=== PATIENT | female | born 1960 | race Caucasian/White ===

== ENCOUNTER 2024-04-01 10:31 | Outpatient (CLI) | payer MEDICAID, SELFPAY | END 2024-04-01 10:32 | disposition home or self-care (01) | LOC: AMB 04-02 03:39 | PROVIDERS: Visit Provider Family Medicine | DX: M79.604 Pain in right leg (principal) | CPT/HCPCS: A0425; A0429 ==

== ENCOUNTER 2024-04-01 11:11 | Emergency (ER) | payer MEDICAID, SELFPAY ==
[2024-04-01 11:18] VITALS: BP 144/58; PULSE 90; RESP 24; TEMP 36.1; O2SAT 97; BMI 58.4
--- NOTE | 2024-04-01 11:32 | CRLHL7_ITS ---
For Patients: As a result of the Century Cures Act, medical imaging exams and procedure reports are released immediately into your electronic medical record. You may view this report before your referring provider. If you have questions, please contact your health care provider. INDICATION: Knee pain TECHNIQUE: Four views of the right knee FINDINGS/IMPRESSION: Normal alignment. No acute fracture or acute osseous abnormalities are visualized. Moderate osteoarthritis with joint space narrowing osteophytic changes. Dictated by Candy Aguirre MD @ 04/01/2024 12:53:29 PM (Electronically Signed)
--- NOTE | 2024-04-01 11:33 | CRLHL7_ITS ---
For Patients: As a result of the Century Cures Act, medical imaging exams and procedure reports are released immediately into your electronic medical record. You may view this report before your referring provider. If you have questions, please contact your health care provider. INDICATION: Leg pain and swelling. TECHNIQUE: Ultrasound venous duplex lower right extremity. Compression venous exam was performed using nails-scale, color Doppler, and spectral Doppler analysis. COMPARISON: None. FINDINGS: Deep veins: Sonographic imaging demonstrates the right common femoral, deep femoral, superficial femoral, popliteal, posterior tibial and the contralateral right common femoral veins to be fully compressible with normal color Doppler blood flow. Superficial veins: Greater saphenous vein is fully compressible. No popliteal cyst. IMPRESSION: Normal right lower extremity venous ultrasound, no sign of deep venous thrombosis. Dictated by Jack Henriquez MD @ 04/01/2024 1:38:54 PM (Electronically Signed)
--- NOTE | 2024-04-01 12:52 | ED_ITS ---
HPI - General Adult General Chief complaint: Extremity Pain/Injury, Lower Stated complaint: Leg Pain Time Seen by Provider: 04/01/24 11:19 Source: patient Mode of arrival: EMS Limitations: no limitations History of Present Illness HPI narrative: Her 63-year-old female, history of chronic pain on a chronic narcotic therapy, presenting today with right lower extremity pain. Patient is a resident at [facility] and generally walks using a walker. She states that for the last 3 days she has had significant pain of the medial right lower extremity around the knee just below the knee and just above the knee in the thigh. Nothing makes it better or worse. The pain is constant. She states that she can not even walk because she is in so much pain. She denies any redness or swelling of the area. She denies any systemic symptoms. Related Data Home Medications ?Medication ?Instructions ?Recorded ?Confirmed aspirin 81 mg chewable tablet 81 mg PO DAILY 04/01/24 04/01/24 cholecalciferol (vitamin D3) 50 50 mcg PO DAILY 04/01/24 04/01/24 mcg (2,000 unit) capsule (Vitamin D3) cyanocobalamin (vitamin B-12) 1,000 mcg PO DAILY 04/01/24 04/01/24 1,000 mcg tablet (Vitamin B-12) duloxetine 60 mg capsule,delayed 60 mg PO DAILY 04/01/24 04/01/24 release fluticasone furoate 200 1 inh inhalation DAILY 04/01/24 04/01/24 mcg-vilanterol 25 mcg/dose inhalation powder furosemide 20 mg tablet 20 mg PO QAM 04/01/24 04/01/24 gabapentin 300 mg capsule 300 mg PO DAILY 04/01/24 04/01/24 hydrocodone 7.5 mg-acetaminophen 1 tab PO Q6H 04/01/24 04/01/24 325 mg tablet hydroxyzine HCl 25 mg tablet 25 mg PO TID PRN 04/01/24 04/01/24 insulin glargine 100 unit/mL (3 20 unit subcut QPM 04/01/24 04/01/24 mL) subcutaneous pen (Lantus Solostar U-100 Insulin) levothyroxine 150 mcg capsule 150 mcg PO DAILY 04/01/24 04/01/24 magnesium hydroxide 400 mg/5 mL 15 ml PO DAILY PRN 04/01/24 04/01/24 oral suspension (Milk of Magnesteban) megestrol 40 mg tablet 40 mg PO DAILY 04/01/24 04/01/24 metformin 1,000 mg tablet 1,000 mg PO BID 04/01/24 04/01/24 rosuvastatin 20 mg tablet 20 mg PO DAILY 04/01/24 04/01/24 zolpidem 10 mg tablet 10 mg PO QHS PRN 04/01/24 04/01/24 Allergies Allergy/AdvReac Type Severity Reaction Status Date / Time droperidol Allergy Unknown Verified 04/01/24 11:34 fluoxetine Allergy Unknown Verified 04/01/24 11:34 ibuprofen Allergy Unknown Verified 04/01/24 11:34 Review of Systems Status of ROS: Reports: 10 or more systems reviewed and unremarkable except as noted in History and below [facility] Social History Smoking Status: Current every day smoker What tobacco products do you use: cig arettes Smoking packs per day: 0.5 Smoking cigarettes per day: 10.0 How often do you have a drink containing alcohol: never AUDIT-C Alcohol total score: 0 Non-prescribed substance use: denies use Exam Narrative: Exam Narrative: Morbidly obese patient in no acute distress. Alert and oriented. Answers questions appropriately. Mood and affect are appropriate. Thoughts are goal or iented and rational. No tangential or magical thinking noted. Patient speaks in full sentences without needing to catch her breath. HEENT: Normocephalic atraumatic. Extraocular muscles are intact. Conjunctivae are moist without any icterus noted. Moist mucous membranes. Extremities: Morbidly obese. Right extremity has no erythema, bruising or other rashes. Patient has tenderness to palpation of the medial lower thigh the medial knee and the medial upper calf. There are no skin changes visualized in the area. She has pain when she has to flex her knee. Was not able to do a good knee exam secondary to body habitus. Const: Vital Signs, click to edit/add: Vital Signs - 24 hr 04/01/24 11:18 Temperature 97 F L Pulse Rate [Pulse Oximeter] 90 Respiratory Rate 24 Blood Pressure [Ri ght Forearm] 144/58 H Pulse Oximetry 97 Oxygen Delivery Me thod Room Air Course Course ED Course: We proceeded with x-raying the knee and ultrasound of the lower extremity: X ray shows osteoarthritis with medial joint space narrowing. She did receive 1 dose of IM Toradol while she was here. Vital Signs Vital signs: Initial Vital Signs Temperature 97 F L 04/01/24 11:18 Temperature Source Temporal Artery Scan 04/01/24 11:18 Pulse Rate 90 04/01/24 11:18 Pulse Rhythm Regular 04/01/24 11:18 Respiratory Rate 24 04/01/24 11:18 Blood Pressure 144/58 H 04/01/24 11:18 Blood Pressure Mean 86 04/01/24 11:18 Blood Pressure Position Supine 04/01/24 11:18 Pulse Oximetry 97 04/01/24 11:18 Oxygen Delivery Method Room Air 04/01/24 11:18 Vital Signs Temperature 97 F L 04/01/24 11:18 Pulse Rate 90 04/01/24 11:18 Respiratory Rate 24 04/01/24 11:18 Blood Pressure 144/58 H 04/01/24 11:18 Pulse Oximetry 97 04/01/24 11:18 Oxygen Delivery Method Room Air 04/01/24 11:18 Temperature 97 F L 04/01/24 11:18 Pulse Rate 90 04/01/24 11:18 Respiratory Rate 24 04/01/24 11:18 Blood Pressure 144/58 H 04/01/24 11:18 Pulse Oximetry 97 04/01/24 11:18 Oxygen Delivery Method Room Air 04/01/24 11:18 Medications Administered Medications: Discontinued Medications Generic Name Dose Route Start Last Admin Trade Name Freq PRN Reason Stop Dose Admin Ketorolac Tromethamine 60 mg 04/01/24 13:15 04/01/24 13:12 Ketorolac 60 Mg/2 Ml Inj IM 04/01/24 13:16 Not Given ONCE ONE Medical Decision Making MDM Narrative Medical decision making narrative: 63-year-old female with leg pain. It appears that her pain could be coming from her knee as knee movement increases her discomfort. It is difficult to be certain of the origin of the pain secondary to body habitus. At this time I recommend pain management with icing versus heat, continuing her Vicodin. Recommend she follow up with Orthopedics or primary care to see if a knee i njection would be beneficial. Imaging Data Knee x-ray: Attestation: I have reviewed the pertinent imaging results. Radiologist's impression: TECHNIQUE: Four views of the right knee FINDINGS/IMPRESSION: Normal alignment. No acute fracture or acute osseous abnormalities are visualized. Moderate osteoarthritis with joint space narrowing osteophytic changes. Venous US: Attestation: I have reviewed the pertinent imaging results. Radiologist's impression: Ultrasound venous duplex lower right extremity. Compression venous exam was performed using nails-scale, color Doppler, and spectral Doppler analysis. COMPARISON: None. FINDINGS: Deep veins: Sonographic imaging demonstrates the right common femoral, deep femoral, superficial femoral, popliteal, posterior tibial and the contralateral right common femoral veins to be fully compressible with normal color Doppler blood flow. Superficial veins: Greater saphenous vein is fully compressible. No popliteal cyst. IMPRESSION: Normal right lower extremity venous ultrasound, no sign of deep venous thrombosis. Discharge Plan Discharge Clinical Impression: Acute leg pain Patient Disposition: Home, Self-Care Condition: Stable Additional Instructions: It appears that your pain is likely caused by significant arthritis in your right knee. I will follow up with Orthopedics or with your primary care provider to discuss a knee injection. In the meantime continue your current pain medication. Can also ice or heat that is tender area, do not apply either ice or heat directly to the skin. Prescriptions: No Action hydrocodone-acetaminophen 7.5-325 mg tablet 1 tab PO Q6H insulin glargine [Lantus Solostar U-100 Insulin] 100 unit/mL (3 mL) insulin pen 20 unit subcut QPM levothyroxine 150 mcg capsule 150 mcg PO DAILY megestrol 40 mg tablet 40 mg PO DAILY metformin 1,000 mg tablet 1,000 mg PO BID rosuvastatin 20 mg tablet 20 mg PO DAILY zolpidem 10 mg tablet 10 mg PO QHS PRN cyanocobalamin (vitamin B-12) [Vitamin B-12] 1,000 mcg tablet 1,000 mcg PO DAILY cholecalciferol (vitamin D3) [Vitamin D3] 50 mcg (2,000 unit) capsule 50 mcg PO DAILY aspirin 81 mg tablet,chewable 81 mg PO DAILY duloxetine 60 mg capsule,delayed release(DR/EC) 60 mg PO DAILY fluticasone furoate-vilanterol 200-25 mcg/dose blister with device 1 inh inhalation DAILY furosemide 20 mg tablet 20 mg PO QAM gabapentin 300 mg capsule 300 mg PO DAILY hydroxyzine HCl 25 mg tablet 25 mg PO TID PRN magnesium hydroxide [Milk of Magnesia] 400 mg/5 mL suspension 15 ml PO DAILY PRN Follow Up/Referrals: Provider,Not a Local [Primary Care Provider] - Stand Alone Forms: [facility] Info Instructions
[2024-04-01 13:54] VITALS: PULSE 85
== END 2024-04-01 14:08 | disposition home or self-care (01) ==
PROVIDERS: Emergency Provider Family Medicine
DX: M25.561 Pain in right knee (principal)
CPT/HCPCS: 73562; 93971; 96372; 99283; 99284

== ENCOUNTER 2024-11-25 18:33 | Outpatient (CLI) | payer MEDICAID, SELFPAY | END 2024-11-25 18:34 | disposition home or self-care (01) | LOC: AMB 11-27 13:03 | PROVIDERS: Visit Provider Student in an Organized Health Care Education/Training Program | DX: S09.90XA Unspecified injury of head, initial encounter (principal); W07.XXXA Fall from chair, initial encounter; Y92.009 Unspecified place in unspecified non-institutional (private) residence as the place of occurrence of the external cause | CPT/HCPCS: A0998 ==

== ENCOUNTER 2024-12-14 09:22 | Emergency (ER) | payer MEDICAID, SELFPAY ==
--- OUTSIDE RECORDS SUMMARY | 2024-12-14 09:25 | XMS_ITS | Clinical Summary ---
Author Organization [employer] [facility] Address [address] [place] [id number] Care Team Providers Care Pit Crew Support Worker Name Role Phone Poly Wilhelm MD Primary Care Provider + Allergies Active Allergy Reactions Criticality Noted Date Comments Droperidol Rash,Wheezing High 02/27/2010 Fluoxetine Rash High 01/17/2010 Ibuprofen Stomach Upset,Nausea And Vomiting Medium 03/23/2017 Pollen Extracts Shortness Of Breath,Runny Nose Unknown 03/23/2017 Itchy watery eyes, exacerbates asthma [place] Pollen Itching,Dyspnea High 03/23/2017 Seasonal Allergies:Allergic Rhinitis, Asthma exacerbation, Itchy watery eyes Medications lancets (ACCU-CHEK FASTCLIX LANCET DRUM)Indications:Co ntrolled type 2 diabetes mellitus without complication, with long-term current use of insulin (HC) TEST BLOOD SUGAR ONCE DAILY DIRECTED 204 Each 3 03/22/20 19 Active levonorgestrel intrauterine device (MIRENA) 20 mcg/24 hours (5 yrs) 52 mg IUD Inject 1 Each intrauterine. 07/07/20 19 Active Diaper,Brief, Adult,DisposableInd ications:Stress incontinence (female) (male) For home use. Pull ups 96 Each 06/10/20 21 Active hospital bedIndications:CRLD (chronic restrictive lung disease),Chronic musculoskeletal pain,Morbid obesity with BMI of 50.0-59.9, adult (HC),Primary osteoarthritis of knee, unspecified laterality Bariatric Hospital bed with mattress and 1/2 rails. Bariatric electric bed. Length of need 99 months. Bed public health doctor:no 1 Each 08/03/20 22 Active NebulizerIndication s:COPD mixed type (HC),Moderate persistent asthma without complication (HC) Nebulizer, disposable neb kit x 4, reuseable neb kit x 1, mask x 1, filters x 1. Frequency of use: daily; Medication: albuterol Length of need: 99 months 1 Each 09/15/19 23 Active wheelchairIndicatio ns:Osteoarthritis of both knees, unspecified osteoarthritis type,Chronic musculoskeletal pain,Morbid obesity with BMI of 50.0-59.9, adult (HC) Electric scooter/Wheelcha ir: Bariatric (over 250 lbs) for home and outdoor use Length of need: 99 months 1 Each 03/29/20 23 Active fluticasone furoate-vilanteroL (Breo Ellipta) 200mcg/25mcg inhalerIndications: COPD mixed type (HC) Inhale 1 Puff by mouth once daily. 60 Each 3 10/12/19 24 Active cyanocobalamin (VITAMIN B12) 500 mcg tabletIndications:V itamin B12 deficiency Take 2 Tablets (1,000 mcg) by mouth once daily. 90 Tablet 3 07/05/20 24 Active albuterol-ipratropi um (DUONEB) (2.5-0.5 mg) in 3 mL NEBULIZATION solutionIndications :Mild persistent asthma without complication (HC) INHALE 1 AMPULE VIA NEBULIZER 4 TIMES DAILY *STORE UNUSED AMPULES IN FOIL POUCH* 180 mL 12 08/03/20 24 Active Januvia 100 mg tabletIndications:C ontrolled type 2 diabetes mellitus without complication, with long-term current use of insulin (HC) TAKE 1 TABLET BY MOUTH DAILY 28 Tablet 08/28/19 25 Active rosuvastatin (CRESTOR) 20 mg tabletIndications:U ncontrolled type 2 diabetes mellitus with hyperglycemia (HC),Dyslipidemia TAKE 1 TABLET BY MOUTH EVERY NIGHT AT BEDTIME 28 Tablet 08/28/19 25 Active omeprazole (PRILOSEC) 20 mg Delayed-Release capsuleIndications: Gastritis and gastroduodenitis TAKE 1 CAPSULE BY MOUTH TWICE DAILY BEFORE BREAKFAST AND SUPPER 56 Capsule 08/28/19 25 Active pen needle,diabetic dual safty (BD AutoShield Duo Pen Needle) 30 gauge x 3/16 ndleIndications:Con trolled type 2 diabetes mellitus with complication, with long-term current use of insulin (HC) As directed. To administer insulin at home once daily 100 Each 08/27/19 25 Active aspirin chewable 81 mg chewable tabletIndications:U ncontrolled type 2 diabetes mellitus with hyperglycemia (HC) Chew 1 Tablet (81 mg) by mouth once daily with a meal. 28 Tablet 09/26/19 25 Active cholecalciferol, Vitamin D3, 2,000 unit tabletIndications:V itamin D deficiency Take 1 Tablet (2,000 units) by mouth once daily. 90 Tablet 2 09/26/19 25 Active DULoxetine (CYMBALTA) 60 mg Delayed-release capsuleIndications: Depressive disorder,Anxiety state Take 1 Capsule (60 mg) by mouth once daily. 90 Capsule 09/26/19 25 Active furosemide (LASIX) 20 mg tabletIndications:H ypertension, unspecified type Take 1 Tablet (20 mg) by mouth once daily in the morning. 90 Tablet 1 09/26/19 25 Active gabapentin (NEURONTIN) 300 mg capsuleIndications: Chronic low back pain, unspecified back pain laterality, unspecified whether sciatica present,Chronic musculoskeletal pain Take 1 Capsule (300 mg) by mouth at bedtime. 90 Capsule 09/26/19 25 Active levothyroxine (SYNTHROID) 150 mcg tabletIndications:H ypothyroidism, unspecified type Take 1 Tablet (150 mcg) by mouth before breakfast. 90 Tablet 09/26/19 25 Active metFORMIN (GLUCOPHAGE) 1,000 mg tabletIndications:U ncontrolled type 2 diabetes mellitus with hyperglycemia (HC) Take 1 Tablet (1,000 mg) by mouth two times daily with meals. 180 Tablet 09/26/19 25 Active montelukast (SINGULAIR) 10 mg tabletIndications:S evere persistent asthma without complication (HC) Take 1 Tablet (10 mg) by mouth at bedtime. 90 Tablet 09/26/19 25 Active potassium chloride (KLOR-CON M10) 10 mEq extended-release tablet (part/cryst)Indicat ions:Hypokalemia Take 1 Tablet (10 mEq) by mouth two times daily with meals. 180 Tablet 09/26/19 25 Active QUEtiapine (SEROQUEL) 400 mg tabletIndications:A uditory hallucinations,Depr essive disorder,Anxiety state Take 1 Tablet (400 mg) by mouth at bedtime. 28 Tablet 09/26/19 25 Active QUEtiapine (SEROQUEL) 50 mg tabletIndications:A uditory hallucinations TAKE 1 TABLET BY MOUTH TWICE DAILY (AM & AFTERNOON) 56 Tablet 09/26/19 25 Active QUEtiapine (SEROQUEL) 25 mg tabletIndications:A uditory hallucinations Take 1 Tablet (25 mg) by mouth once daily in the morning. Along with 50 mg tablet for a total of 75 mg in the morning 28 Tablet 09/26/19 25 Active tolterodine (DETROL LA) 2 mg Extended-Release capsuleIndications: Mixed stress and urge urinary incontinence Take 1 Capsule (2 mg) by mouth once daily. 90 Capsule 09/26/19 25 Active ferrous sulfate 325 mg delayed release tabletIndications:I yissel deficiency anemia secondary to inadequate dietary iron intake Take 1 Tablet (325 mg) by mouth once daily with a meal. 90 Tablet 10/03/19 25 Active Walker - 4 wheelsIndications:O steoarthritis of both knees, unspecified osteoarthritis type,Chronic musculoskeletal pain,Morbid obesity with BMI of 50.0-59.9, adult () Bariatic 4 wheel walker with bench seat. For home use. Length of need: 99 1 Each 10/17/19 25 Active transmitter for continuous blood glucose monitor (CGM)Indications:Ty pe 2 diabetes mellitus, with long-term current use of insulin (HC) Dexcom G6, Change every 90 days 1 Each 10/26/19 25 Active hydrOXYzine HCL 25 mg tabletIndications:C hronic musculoskeletal pain Take 1 Tablet (25 mg) by mouth 3 times daily if needed for Anxiety (pain or nausea). 270 Tablet 11/08/19 25 Active zolpidem 10 mg tabletIndications:I nsomnia, idiopathic Take 1 Tablet (10 mg) by mouth at bedtime. 30 Tablet 11/08/19 25 Active HYDROcodone-acetami nophen (7.5-325 mg/tablet)Indicatio ns:Chronic musculoskeletal pain,Chronic low back pain, unspecified back pain laterality, unspecified whether sciatica present Take 1 Tablet by mouth every 6 hours. DO NOT EXCEED 4,000 MG ACETAMINOPHEN IN 24 HOURS-- 120 Tablet 11/21/19 25 Active broaching machine repairer (Dexcom G6 Gas Fitter) for continuous blood glucose monitor (CGM)Indications:Ty pe 2 diabetes mellitus, with long-term current use of insulin (HC) Use as directed 1 Each 11/21/19 25 Active insulin glargine (U-100) (Lantus Solostar U-100 Insulin) 100 unit/mL (3 mL) penIndications:Unco ntrolled type 2 diabetes mellitus with hyperglycemia (HC) Inject 20 units subcutaneous before bedtime. 15 mL 1 12/01/19 25 Active sensor (Dexcom G6 Sensor) for continuous blood glucose monitor (CGM)Indications:Ty pe 2 diabetes mellitus, with long-term current use of insulin (HC) Change sensor every 10 days 9 Each 3 12/13/19 25 Active sensor (Dexcom G6 Sensor) for continuous blood glucose monitor (CGM)Indications:Ty pe 2 diabetes mellitus, with long-term current use of insulin (HC) Change sensor every 10 days 9 Each 3 10/05/19 24 2024 Disconti nued(Reo rder (E-cance l not sent)) insulin glargine, U-100, (Lantus Solostar U-100 Insulin) 100 unit/mL (3 mL) penIndications:Unco ntrolled type 2 diabetes mellitus with hyperglycemia (HC) Inject 20 units subcutaneous before bedtime. 15 mL 1 03/24/20 24 2024 Disconti nued(Reo rder (E-cance l not sent)) Dexcom G6 Gas Fitter for continuous blood glucose monitor (CGM)Indications:Ty pe 2 diabetes mellitus, with long-term current use of insulin (HC) USE DIRECTED 1 Each 06/18/20 24 2024 Disconti nued(Reo rder (E-cance l not sent)) HYDROcodone-acetami nophen (7.5-325 mg/tablet)Indicatio ns:Chronic musculoskeletal pain,Chronic low back pain, unspecified back pain laterality, unspecified whether sciatica present Take 1 Tablet by mouth every 6 hours. DO NOT EXCEED 4,000 MG ACETAMINOPHEN IN 24 HOURS-- 120 Tablet 10/25/19 25 2024 Disconti nued(Reo rder (E-cance l not sent)) Active Problems Problem Noted Date Diagnosed Date Iron deficiency 07/04/2024 Iron deficiency anemia 10/26/2022 Morbid obesity with BMI of 50.0-59.9, adult 07/16 Chronic musculoskeletal pain 08/03/2022 Personal history of colonic polyps 03/25/2022 Schizophrenia, unspecified type 02/25/2022 Heart failure 06/13/2021 Essential (hemorrhagic) thrombocythemia 06/13/20 21 Other specified glaucoma 01/08/2021 Controlled type 2 diabetes m ellitus with complication, with long-term current use of insulin 12/11/2019 Moderate persistent asthma without complication 12/11/2019 Substance abuse in remission 03/31/2019 History of right breast biopsy 01/17/2018 CKD (chronic kidney disease) stage 3, GFR 30-59 ml/min 12/31/2017 COPD mixed type 12/31/2017 Severe persistent asthma 12/31/2017 Tachycardia 12/31/2017 Opioid dependence 12/31/2017 Medically noncompliant 12/31/2017 Stress incontinence (female) (male) 11/22/2017 Complex endometrial hyperplasia with atypia 08/17 Influenza A 06/11/2017 Overview (06/12/2017): 06/11/2017 Influenza swab: positive influenza A. Chest radiograph: negative. ASCUS with positive high risk HPV cervical 02/02 Overview (02/15/2017): 02/02/2017: ASCUS / HPV positive PLAN: Colposcopy Auditory hallucinations 05/23/2013 Tobacco dependence 05/23/2013 Tobacco dependence syndrome 05/23/2013 Vitamin D deficiency 07/19/2012 ACP (advance care planning) 05/24/2012 Overview (05/24/2012): Patient has identified Health Care Agent(s): No Add Health Care Agents: No Patient has Advance Care Plan Documents (Health Care Directive, POLST): Yes Advance Care Plan Documents: POLST Form Patient has identified Specific Treatment Preferences: Yes Specific Treatment Preferences: a.) Code Status: CPR/Attempt Resuscitation b.) Goals of Treatment: iii. Provide Life sustaining treatment. Intubate, cardiovert, and provide medically necessary care to sustain life. c.) Interventions and Treatments: i. Antibiotics: - Use Aggressive antibiotic treatment ii. Nutrition/Hydration: - Offer food and liquids by mouth CHAPLAIN Courtney .................... 05/24/2012 10:52 AM Controlled substance agreement signed 04/08/2012 Overview (04/08/2012): On file from June 2011 CRLD (chronic restrictive lung disease) 09/19/19 12 Depressive disorder, not elsewhere classified OA (osteoarthritis) of knee 05/26/2010 NICOLA (obstructive sleep apnea) 02/26/2010 Overview (06/13/2017): 06/13/2017 not using CPAP CAD (coronary artery disease) 01/17/2010 Anxiety state, unspecified 01/11/2010 Restless leg syndrome 01/11/2010 Medial meniscus tear 09/02/2009 Morbid obesity 08/30/2009 Overview (06/12/2017): 06/12/2017 Body mass index is 57.94 kg/(m^2). Arthropathy, traumatic, knee 08/30/2009 Acquired hypothyroidism 04/03/2007 Overview (06/13/2017): Levothyroxine. TSH (uIU/mL) Date Value 02/24/2017 2.34 Postmenopausal bleeding Polyp of colon DINA III (cervical intraepith elial neoplasia grade III) with severe dysplasia Resolved Problems Problem Noted Date Diagnosed Date Resolved Date Monoparesis of upper extremity 06/13/2021 10/12/2023 Auditory hallucination 03/31/201902/25 Uncontrolled type 2 diabetes mellitus without complication, with long-term current use of insulin 04/12/2018 02/25/2022 Mild persistent asthma 06/12/201709/20 Special screening for malign ant neoplasms, colon 03/29/2017 06/12/2017 Asthma exacerbation 01/20/2017 02/23/20 17 Controlled type 2 diabetes m ellitus without complication, with long-term current use of insulin 05/27/2016 02/25/2022 Overview (06/12/2017): HEMOGLOBIN A1C MONITORING (POCT) Date Value 04/26/2017 7.5 % (H) 04/27/2012 5.6 % 02/26/2010 6.1 % Total Hgb HEMOGLOBIN A1C SCREENING (% Total Hgb) Date Value 05/23/2013 5.8 Controlled Substance Agreement 06/07/2013 02/22/2017 Asthma 05/23/2013 02/22/2017 Low back pain 08/10/2012 06/12/2017 Acute back pain 05/23/2012 02/22/2017 Steroid-induced hyperglycemia 05/01/2012 06/12/2017 Overview (05/01/2012): [place] December 2009 Controlled atrial fibrillation 04/08/2012 04/27/2012 Acute on Chronic Respiratory acidosis 06/21/2011 06/12/2017 Altered mental status 06/21/20112016 Pain, joint, knee, right 06/16/2011 Restless legs syndrome (RLS) 06/10/2011 06/21/2011 Unspecified psychosis 04/22/20112016 Steroid-induced hyperglycemia 04/30/2010 05/01/2012 Overview (04/27/2012): [place] 01/07/10 ? DUE TO STEROIDS Contusion of knee 02/26/2010 02/22/2017 Ankle sprain 02/26/2010 06/12/2017 Unspecified gastritis and ga stroduodenitis without mention of hemorrhage 02/26/2010 06/12/2017 Leukocytosis 01/18/2010 06/21/2011 Nausea with vomiting 01/17/2010 011 Melena 01/17/2010 06/21/2011 Stress hyperglycemia 01/12/2010 017 Drug eruption 01/10/2010 06/21/2011 Vesicular rash 01/05/2010 06/12/2017 Pruritic dermatitis 01/05/2010 06/12/20 17 Leukocytosis, unspecified 10/19/2007 Unspecified hypothyroidism 04/03/2007 0 04/03/2007 Unspecified asthma 03/18/2007 7 Overview (09/18/2016): Patient states that her asthma has been getting worse over the last few days, being more short of breath.. She tells me that they told her that she had a low grade temperature in the emergency department, but has not taken her temperature at home. She has chronic daily vomiting and this is unchanged and reports that she hasn't been able to take her pain medications. She has chronic chest/ back pain and she tells me that when her pain is worse and she does not get pain medicine for this, it causes her asthma to become worse. She is waiting for her nurse to bring her some IV Dilaudid. She denies having a cough now, but did a few days ago and brought up some thicker, white phlegm. Her friend tells me she was seen in th emergency department yesterday for her asthma. Stacey tells me that she had 3 nebs in the ambulance and 3 in the emergency department, but has not had any while on the floor. Her biggest complaint is he back pain. She initially told med that she was not using anything for her asthma when I asked her what inhalers she was using. She tells me that she doesn't know what she takes because a nurse sets them up for her and that I should look up the list in the computer. She is talking in full sentences and is able to maneuver herself around in bed without assistance. Tobacco use disorder 03/18/2007 017 Abnormal cervical Papanicolaou smear 06/12/2017 Encounters Date Type Department Care Team Description 12/11/2024 Refill [facility] [address] [facility] [place] [address] Poly Wilhelm MD Refill Request (Dexcom G6 sensors) 11/28/2024 Refill [facility] [address] [facility] [place] [address] Poly Wilhelm MD Refill Request (Lantus) 11/20/2024 Refill [facility] [address] [facility] [place] [address] Poly Wilhelm MD Refill Request (Hydrocodone and dexcom 6 broaching machine repairer) 11/16/2024 Orders Only [facility] [address] [facility] [place] [address] Ailin Roberson, PharmD <No scans attached> 11/06/2024 Refill [facility] [address] [facility] [place] [address] Poly Wilhelm MD Refill Request (Hydroxyzine HCL 25mg and Zolpidem 10mg) 10/24/2024 Refill [facility] [address] [facility] [place] [address] Poly Wilhelm MD Refill Request (Dexcom G6 MIS Transmit ) 10/20/2024 Refill [facility] [address] [facility] [place] [address] Poly Wilhelm MD Refill Request (Hydrocodone ) 10/16/2024 Orders Only [facility] [address] [facility] [place] [address] Poly Wilhelm MD <No scans attached> 10/03/2024 Telephone [facility] [address] [facility] [place] [address] Poly Wilhelm MD Results 09/26/2024 3:55 PM SKIN CARE CONSULTANT Office Visit [facility] [address] [facility] [place] [address] Poly Wilhelm MD Diabetes; Medication Management 09/26/2024 Travel 09/19/2024 Refill [facility] [address] [facility] [place] [address] Poly Wilhelm MD Refill Request (Montelukast, Tolterodine, Quetiapine, Quetiapine, Quetiapine, Cholecalciferol (Vitamin D3), Aspirin Chewable) from Last 3 Months Immunizations Immunization Administration Dates Next Due COVID-19 VACCINE SPIKEVAX (M ODERNA 50MCG/0.5ML) 12YO+ PFS 06/30/2024 COVID-19 vaccine (Pfizer-Bio NTech 30mcg/0.3mL) 12YO+ BIVALENT PF, MDV 06/12/2022 COVID-19 vaccine (Pfizer-Bio NTech 30mcg/0.3mL) PF, MDV 06/13/2021,12/10/2020,11/19/2020 Hepatitis B (Adult) 03/08/2013 INFLUENZA, IIV3 PF (AGE >= 6 MO) 06/30/2024,08/16,04/30/2010 Influenza A (H1N1), Inactiva marcie (Age >=3 Years) 08/01/2009 Influenza, IIV3 (Age 6-35 mos) 06/10/2011 Influenza, IIV3 (Age >=3 years) 06/07/20 13,04/27/2012,06/10/2011,2009,06/11/2009,09/14/2008,06/29/2006 Influenza, IIV4 05/31/2023, 2,06/13/2021,2019,06/19/2019,06/14/2018,06/15/2016 Influenza, IIV4 (=>6mos) MDV 05/21/2014 Pneumococcal Conj 20-valent (Prevnar 20) 06/28/2023 Pneumococcal Poly,23-Valent (Pneumovax) 08/31/2009 Td (Age >=7 Years) 10/30/2020 Tdap 07/16/2010 Tuberculin (PPD) 08/12/2022 Zoster (Shingrix-RZV, recombinant) 10/30/2020, Family History Medical History Relation Name Comments Cancer Father SPINAL CA Cancer Sister uterine Relation Name Status Comments Father Mother Sister Alive Social History Tobacco Use Types Packs/Day Years Used Date Smoking Tobacco: Light Smoker Cigarettes 0.3 25 Smokeless Tobacco: Never Tobacco Cessation:Ready to Q uit: No; Counseling Given: Yes Comments:ATQ using nicotine patches Alcohol Use Standard Drinks/Week Comments No 0 (1 standard drink = 0.6 oz pur e alcohol) rare, might have 1/yr PHQ-2 Answer Date Recorded PHQ-2 TOTAL SCORE 2 06/30/2024 Social Connections Answer Date Recorded Do you often feel lonely or isolated from those around you? 0 06/30/2024 Financial Resource Strain Answer Date R ecorded Difficulty of Paying Living Expenses 2 06/30/2024 Difficulty of Paying Living Expenses 1 06/30/2024 Food Insecurity Answer Date Recorded Do you worry your food will run out before you are able to buy more? 1 06/30/2024 Transportation Needs Answer Date Record ed Does lack of transportation keep you from medica l appointments? 1 06/30/2024 Does lack of transportation keep you from work, meetings or getting things that you need? 1 06/30/2024 Housing Stability Answer Date Recorded What is your housing situation today? 1 06/30/2024 Utilities Answer Date Recorded Do you have trouble paying f or utilities (for example, heat, electricity, water, phone)? 2 06/30/2024 Comments No Sex and Gender Information Value Date Recorded Sex Assigned at Not on file Legal Sex Female 6:42 AM SKIN CARE CONSULTANT Gender Identity Not on file Sexual Orientation Not on file Obstetrics History Last Filed Vital Signs Vital Sign Reading Time Taken Comments Blood Pressure 124/88 08/23/2024 1:01 PM SKIN CARE CONSULTANT Pulse 95 09/26/2024 3:31 PM SKIN CARE CONSULTANT Temperature 36.5 C (97.7 F) 07/05/2024 10:55 AM SKIN CARE CONSULTANT Respiratory Rate 18 07/05/2024 10:55 AM SKIN CARE CONSULTANT Oxygen Saturation 95% 09/26/2024 3:31 PM SKIN CARE CONSULTANT Inhaled Oxygen Concentration - - Weight 150.4 kg (331 lb 8 oz) 09/26/2024 3:31 PM SKIN CARE CONSULTANT Height 162.6 cm (5' 4) 11/23/2023 11:16 AM CDT Body Mass Index 56.9 11/23/2023 11:16 AM CDT Plan of Treatment Scheduled Procedures Name Priority Associated Diagnoses Date/Ti me SURGICAL PROCEDURE (TYPE PROCEDURE DESCRIPTION BELOW) Tier 2 Endometrial hyperplasia, unspecified Health Maintenance Due Date Last Done Comments Mammogram for age 45-75 01/14/2018 01/14/2017, 01/06 Pap test for age 21-65 09/21/2020 8, 02/02/2017, 02/02/2017, Additional history exists RSV vaccine for adults or (1 - Risk 60-74 years 1-dose series) 2021 BMI (ht and wt on same day) for age 18+ 10/12/2024 10/12/2023, 10/22/2020, 03/06/2019, Additional history exists Depression screening for age 12+ 07/05/2025 07/05/2024, 07/03/2024, 06/30/2024, Additional history exists Colonoscopy through age 75 03/25/2029 03/25/2022, Lipids for age 45-75 09/26/2029 09/26/2024, 10/12/2023, 06/03/2022, Additional history exists Tetanus booster 10/30/2030 10/30/2020, 12/08/2009, 07/16/2010 HIV for age 15-65 Completed 01/07/2010 Tdap Completed 07/16/2010 Hepatitis C screening for ag e 18-79 Completed 10/03/2019 Zoster (shingles) series for age 50+ Completed 10/30/2020, 04/26/2020 Pneumococcal series for age 50+ Completed 3, 08/31/2009 COVID-19 vaccine series Completed 06/30/20 24, 11/25/2023, 05/31/2023, Additional history exists Influenza Vaccine Completed 06/30/2024, , 06/12/2022, Additional history exists Medical Devices Implanted Type Area Cargo Service Supervisor Device Identifier Shelf Expiration Date Model / Serial / Lot Sys Intrauterine Mirena - [id number] Implanted:Qty: 1 on 05/14/2017 by Silvia Brown MD at [facility] N/A: Uterus [employer] 12/13/2019 [id number] / / [id number] Procedures Procedure Name Priority Date/Time Associated Diagnosis Comments NC BLOOD COUNT COMPLETE AUTO&AUTO DIFRNTL WBC Routine 09/26/2024 5:02 PM SKIN CARE CONSULTANT Iron deficiency anemia, unspecified iron deficiency anemia type COMP METABOLIC PANEL Routine 09/26/2024 4:51 PM SKIN CARE CONSULTANT Uncontrolled type 2 diabetes mellitus with hyperglycemia (HC) TSH WITH REFLEX Routine 09/26/2024 4:51 PM SKIN CARE CONSULTANT Hypothyroidism, unspecified type HEMOGLOBIN A1C Routine 09/26/2024 4:51 PM SKIN CARE CONSULTANT Uncontrolled type 2 diabetes mellitus with hyperglycemia (HC) LIPID PANEL Routine 09/26/2024 4:51 PM SKIN CARE CONSULTANT Uncontrolled type 2 diabetes mellitus with hyperglycemia (HC) IRON PLUS IRON BINDING CAP Routine 09/26/2024 4:51 PM SKIN CARE CONSULTANT Iron deficiency anemia, unspecified iron deficiency anemia type FERRITIN Routine 09/26/2024 4:51 PM SKIN CARE CONSULTANT Iron deficiency anemia, unspecified iron deficiency anemia type TRANSFERRIN Routine 09/26/2024 4:51 PM SKIN CARE CONSULTANT Iron deficiency anemia, unspecified iron deficiency anemia type COLONOSCOPY 03/25/2022 8:27 AM CDT ANTI HCV Add On 10/03/2019 4:03 PM SKIN CARE CONSULTANT Need for hepatitis C screening test HOT STAMP OPERATOR THIN PREP PAP DIAGNOSTIC IMAGED Today 09/21/2017 9:55 AM SKIN CARE CONSULTANT XR MAMMO UNI DIAGNOSTIC RIGHT Routine 01/14/2017 2:47 PM CDT Breast microcalcifications ANTI HIV 1/2 Early AM 01/07/2010 10:15 AM CDT from Last 3 Months or Most Recently Relevant to Health Maintenance Results * (ABNORMAL) CBC AND DIFFERENTIAL (09/26/2024 5:02 PM SKIN CARE CONSULTANT) WHITE BLOOD CELL COUNT 11.6(H) 3.8 - 10.8 Thousand/u L [facility]) RED BLOOD CELL COUNT 4.43 3.80 - 5.10 Million/uL [facility] ([facility]) HEMOGLOBIN 11.6(L) 11.7 - 15.5 g/dL [facility] ([facility]) HEMATOCRIT 37.2 35.0 - 45.0 % [facility] ([facility]gent [facility]) MCV 84.0 80.0 - 100.0 fL [facility] ([facility]) MCH 26.2(L) 27.0 - 33.0 pg [facility] ([facility]gent [facility]) MCHC 31.2(L) 32.0 - 36.0 g/dL [facility] ([facility]gent [facility]) Comment: For adults, a slight decrease in the calculated MCHC value (in the range of 30 to 32 g/dL) is most likely not clinically significant; however, it should be interpreted with caution in correlation with other red cell parameters and the patient's clinical condition. RDW 14.4 11.0 - 15.0 % [facility] ([place]) PLATELET COUNT 464(H) 140 - 400 Thousand/u L [facility] ([facility]) MPV 9.8 7.5 - 12.5 fL [facility] ([facility]) ABSOLUTE NEUTROPHILS 6,937 1,500 - 7,800 cells/uL [facility] ([facility]) ABSOLUTE LYMPHOCYTES 3,561 850 - 3,900 cells/uL [facility] ([facility]) ABSOLUTE MONOCYTES 754 200 - 950 cells/uL [facility] ([facility]gent [facility]) ABSOLUTE EOSINOPHILS 325 15 - 500 cells/uL [facility] ([facility]gent [facility]) ABSOLUTE BASOPHILS 23 0 - 200 cells/uL [facility] ([facility]gent [facility]) NEUTROPHILS 59.8 % [facility] ([facility]gent [facility]) LYMPHOCYTES 30.7 % [facility] ([facility]gent [facility]) MONOCYTES 6.5 % [facility] ([facility]gent [facility]) EOSINOPHILS 2.8 % [facility] ([facility]gent [facility]) BASOPHILS 0.2 % [facility] ([facility]gent [facility]) Blood BLOOD SPECIMEN / Unknown 09/26/2024 5:02 PM SKIN CARE CONSULTANT 09/26/2024 5:02 PM SKIN CARE CONSULTANT Narrative [facility] - 09/26/2024 5:11 PM SKIN CARE CONSULTANT SPLIT 09/26/2024 FROM [id number] Poly Wilhelm MD HEMATOLOGY Final Re sult [facility] [address] [place] [address], [place] [phone] [facility] (Urgent Care) [address] [place] [address] * (ABNORMAL) HEMOGLOBIN A1C (09/26/2024 4:51 PM SKIN CARE CONSULTANT) HEMOGLOBIN A1C 7.7(H) <5.7 % of total Hgb [facility] Comment: For someone without known diabetes, a hemoglobin A1c value of 6.5% or greater indicates that they may have diabetes and this should be confirmed with a follow-up test. For someone with known diabetes, a value <7% indicates that their diabetes is well controlled and a value greater than or equal to 7% indicates suboptimal control. A1c targets should be individualized based on duration of diabetes, age, comorbid conditions, and other considerations. Currently, no consensus exists regarding use of hemoglobin A1c for diagnosis of diabetes for children. Blood BLOOD SPECIMEN / Unknown 09/26/2024 4:51 PM SKIN CARE CONSULTANT 09/26/2024 4:52 PM SKIN CARE CONSULTANT Narrative [facility] - 09/27/2024 4:15 AM SKIN CARE CONSULTANT MULTIPLE TESTING PRIORITIES; ROUTINE TESTING TO FOLLOW. Poly Wilhelm MD CHEMISTRY Final Re sult [facility] [address] [place] [address], [facility] [address] [place] [address] * TSH WITH REFLEX (09/26/2024 4:51 PM SKIN CARE CONSULTANT) TSH W/REFLEX TO FT4 1.09 0.40 - 4.50 mIU/L [facility] Blood BLOOD SPECIMEN / Unknown 09/26/2024 4:51 PM SKIN CARE CONSULTANT 09/26/2024 4:52 PM SKIN CARE CONSULTANT Narrative [facility] - 09/27/2024 5:09 AM SKIN CARE CONSULTANT MULTIPLE TESTING PRIORITIES; ROUTINE TESTING TO FOLLOW. Poly Wilhelm MD CHEMISTRY Final Re sult Performing Organization Address [facility] Co de Phone Number [employer] [facility] [address] [place] [phone], [facility] [address] [place] [address] * (ABNORMAL) IRON PLUS IRON BINDING CAP (09/26/2024 4:51 PM SKIN CARE CONSULTANT) IRON, TOTAL 38(L) 45 - 160 mcg/dL [facility] IRON BINDING CAPACITY 433 250 - 450 mcg/dL (calc) [facility] % SATURATION 9(L) 16 - 45 % (calc) [facility] Blood BLOOD SPECIMEN / Unknown 09/26/2024 4:51 PM SKIN CARE CONSULTANT 09/26/2024 4:52 PM SKIN CARE CONSULTANT Narrative [facility] - 09/27/2024 5:09 AM SKIN CARE CONSULTANT MULTIPLE TESTING PRIORITIES; ROUTINE TESTING TO FOLLOW. Poly Wilhelm MD CHEMISTRY Final Re sult Performing Organization Address [facility] Co de Phone Number [employer] [facility] [address] [place] [phone], [facility] [address] [place] [phone] * TRANSFERRIN (09/26/2024 4:51 PM SKIN CARE CONSULTANT) Pathologist [facility] TRANSFERRIN 340 188 - 341 mg/dL [facility] Blood BLOOD SPECIMEN / Unknown 09/26/2024 4:51 PM SKIN CARE CONSULTANT 09/26/2024 4:52 PM SKIN CARE CONSULTANT Narrative [facility] [place] - 09/28/2024 2:20 AM SKIN CARE CONSULTANT MULTIPLE TESTING PRIORITIES; ROUTINE TESTING TO FOLLOW. Poly Wilhelm MD CHEMISTRY Final Re sult Performing Organization Address City/[facility]/ZIP Co de Phone Number [facility] [place] [address] [place] [address], [facility] [address] [place] [address] * (ABNORMAL) FERRITIN (09/26/2024 4:51 PM SKIN CARE CONSULTANT) Pathologist [facility] FERRITIN 15(L) 16 - 288 ng/mL [facility] Blood BLOOD SPECIMEN / Unknown 09/26/2024 4:51 PM SKIN CARE CONSULTANT 09/26/2024 4:52 PM SKIN CARE CONSULTANT Narrative [facility] - 09/27/2024 5:19 AM SKIN CARE CONSULTANT MULTIPLE TESTING PRIORITIES; ROUTINE TESTING TO FOLLOW. Poly Wilhelm MD CHEMISTRY Final Re sult [employer] [facility] [address] [place] [address], [facility] [address] [place] [address] * (ABNORMAL) LIPID PANEL (09/26/2024 4:51 PM SKIN CARE CONSULTANT) [facility] CHOLESTEROL, TOTAL 105 <200 mg/dL [facility] HDL CHOLESTEROL 40(L) > OR = 50 mg/dL [facility] TRIGLYCERIDES 146 <150 mg/dL [facility] LDL-CHOLESTEROL 42 mg/dL (calc) [facility] Comment: Reference range: <100 Desirable range <100 mg/dL for primary prevention; <70 mg/dL for patients with CHD or diabetic patients with > or = 2 CHD risk factors. LDL-C is now calculated using the Chidi-Liam calculation, which is a validated novel method providing better accuracy than the Friedewald equation in the estimation of LDL-C. Chidi SS et al. RAHEEM. 2013;310(19): 8482-2830 (http://education.To The Tops/faq/EFV138) CHOL/HDLC RATIO 2.6 <5.0 (calc) [facility] NON HDL CHOLESTEROL 65 <130 mg/dL (calc) [facility] Comment: For patients with diabetes plus 1 major ASCVD risk factor, treating to a non-HDL-C goal of <100 mg/dL (LDL-C of <70 mg/dL) is considered a therapeutic option. Blood BLOOD SPECIMEN / Unknown 09/26/2024 4:51 PM SKIN CARE CONSULTANT 09/26/2024 4:52 PM SKIN CARE CONSULTANT Narrative [facility] - 09/27/2024 5:09 AM SKIN CARE CONSULTANT MULTIPLE TESTING PRIORITIES; ROUTINE TESTING TO FOLLOW. Poly Wilhelm MD CHEMISTRY Final Re sult [employer] [facility] [address] [place] [address], [facility] [address] [place] [address] * (ABNORMAL) COMP METABOLIC PANEL (09/26/2024 4:51 PM SKIN CARE CONSULTANT) [facility] GLUCOSE 129(H) 65 - 99 mg/dL [facility] Comment: Fasting reference interval For someone without known diabetes, a glucose value >125 mg/dL indicates that they may have diabetes and this should be confirmed with a follow-up test. UREA NITROGEN (BUN) 11 7 - 25 mg/dL [facility] CREATININE 0.91 0.50 - 1.05 mg/dL [facility] EGFR 71 > OR = 60 mL/min/1. 73m2 [facility] BUN/CREATININE RATIO SEE NOTE: 6 - 22 (calc) [facility] Comment: Not Reported: BUN and Creatinine are within reference range. SODIUM 137 135 - 146 mmol/L [facility] POTASSIUM 4.5 3.5 - 5.3 mmol/L [facility] CHLORIDE 97(L) 98 - 110 mmol/L [facility] CARBON DIOXIDE 30 20 - 32 mmol/L [facility] CALCIUM 9.1 8.6 - 10.4 mg/dL [facility] PROTEIN, TOTAL 6.4 6.1 - 8.1 g/dL [facility] ALBUMIN 4.0 3.6 - 5.1 g/dL [facility] GLOBULIN 2.4 1.9 - 3.7 g/dL (calc) [facility] ALBUMIN/GLOBULIN RATIO 1.7 1.0 - 2.5 (calc) [facility] BILIRUBIN, TOTAL 0.4 0.2 - 1.2 mg/dL [facility] ALKALINE PHOSPHATASE 128 37 - 153 U/L [facility] AST 20 10 - 35 U/L [facility] ALT 20 6 - 29 U/L [facility] Blood BLOOD SPECIMEN / Unknown 09/26/2024 4:51 PM SKIN CARE CONSULTANT 09/26/2024 4:52 PM SKIN CARE CONSULTANT Narrative [facility] - 09/27/2024 5:09 AM SKIN CARE CONSULTANT MULTIPLE TESTING PRIORITIES; ROUTINE TESTING TO FOLLOW. us Poly Wilhelm MD CHEMISTRY Final Re sult [facility] [address] [place] [address], [facility] [address] [place] [address] * COLONOSCOPY (03/25/2022 8:27 AM CDT) 03/25/2022 8:27 AM CDT Narrative Transcriptions Janice Gerber MD - 03/25/2022 8:54 AM CDT Patient Name: Stacey Palumbo Procedure Date: 03/25/2022 Gender: Female Date of : 1960 Admit Type: Ambulatory Procedure: Colonoscopy Proceduralist: Janice Gerber MD Referring MD: Poly Flores Indications/Pre-Op Diagnosis: Screening for malignant neoplasm in thecolon, High risk colon cancer surveillance:Personal history of colonic polyps, Last colonoscopy: March 2017 Medications: Midazolam 2 mg IV, Fentanyl 100 microgramsIV, Oxygen per cannula, IV Fluids 1000 mL IV Procedure Description: The procedure, indications, potential complications, (bleeding, perforation, infection, adverse medication reaction, missed lesionsor polyps) and alternatives available were explained to the patient, who appeared to understand and indicated this. Opportunity for questionswas provided and informed consent obtained. The endoscope [id number] was introduced through the anus and advanced to the cecum, identified by appendiceal orifice andileocecal valve. The colonoscopy was performed without difficulty. The patient tolerated the procedure well. The quality of the bowel preparationwas evaluated using the BBPS ([place] Bowel Preparation Scale) with scores of: Right Colon = 2 (minor amount of residual staining, smallfragments of stool and/or opaque liquid, but mucosa seen well), TransverseColon = 3 (entire mucosa seen well with no residual staining, small fragmentsof stool or opaque liquid) and Left Colon = 2 (minor amount of residual staining, small fragments of stool and/or opaque liquid, but mucosaseen well). The total BBPS score equals 7. The bowel preparation used was GoLYTELY via split dose instruction. Scope withdrawal time was 7 minutes. The total duration of the procedure was 11 minutes. The ileocecal valve, appendiceal orifice, and rectum were photographed.The scope was advanced using CO2 insufflation. Complications: No immediate complications. Estimated Blood Loss & Specimen: Estimated blood loss: none. Specimen collected: None Findings: The retroflexed view of the distal rectum and anal verge was normaland showed no anal or rectal abnormalities. Diverticula were found in the sigmoid colon and descending colon. Impressions/Post-Op Diagnosis: - The distal rectum and anal verge are normal on retroflexion view. - Diverticulosis in the sigmoid colon and in the descending colon. - No specimens collected. Recommendation: - Repeat colonoscopy in 7-10 years. - Patient has a contact number available for emergencies. The signsand symptoms of potential delayed complications were discussed with the patient. Return to normal activities tomorrow. Written discharge instructions were provided to the patient. Moderate Sedation: Moderate (conscious) sedation was administered by the endoscopy nurse and supervised by the endoscopist. The following parameters were monitored: oxygen saturation, heart rate, respiratory rate, adequacyof pulmonary ventilation and reponse to care. Please refer to the patient's medical record flowsheets for moderate sedation details. Janice Gerber MD 03/25/2022 8:54:32 AM This report has been signed electronically. Note Initiated On: 03/25/2022 8:27 AM Scope Withdrawal Time 0 hours 7 minutes 54 seconds Total Procedure Duration Time 0 hours 11 minutes 35 seconds Janice Gerber MD PROCEDURE ORD Fi nal Result * ANTI HCV (10/03/2019 4:03 PM SKIN CARE CONSULTANT) HEPATITIS C ANTIBODY Non-React haley Non-React haley 10/03/2019 9:15 PM SKIN CARE CONSULTANT [facility] Comment:Antibodies to HCV no t detected; does not exclude the possibility of exposure to HCV. Blood BLOOD SPECIMEN / Unknown Venipuncture / Unknown 10/03/2019 4:03 PM SKIN CARE CONSULTANT 10/03/2019 4:05 PM SKIN CARE CONSULTANT Blake Carpio MD SEND OUTS Final Re sult [facility] [address] [place] [address], [place] * (ABNORMAL) HOT STAMP OPERATOR THIN PREP PAP DIAGNOSTIC IMAGED (09/21/2017 9:55 AM SKIN CARE CONSULTANT) Case Report Gynecologic Cytology Report Case: [id number] Authorizing Provider: Danitza Salinas, Collected: 09/21/2017 0955 Ordering Location: [facility] Received: 09/21/2017 1037 First Screen: Kailash Mtz Rescreen: Chel Childress Specimen: HOT STAMP OPERATOR ThinPrep Vial Diagnostic, Cervical 09/30/2017 8:28 AM SKIN CARE CONSULTANT [employer] LABORATORY-C ENTRAL LABORATORY INTERPRETATION/ RESULT UNSATISFACTORY FOR EVALUATION (UNS)(A) (none) 09/30/2017 8:28 AM SKIN CARE CONSULTANT [employer] LABORATORY-C ENTRAL LABORATORY at 0828 SKIN CARE CONSULTANT SPECIMEN ADEQUACY Specimen processed and examined, but unsatisfactory for evaluation of epithelial abnormality because of: Scant cellularity Foreign material/lubrican t 09/30/2017 8:28 AM SKIN CARE CONSULTANT [employer] LABORATORYEasySizeC ENTRAL LABORATORY HPV REQUEST HPV if ASCUS 09/30/2017 8:28 AM SKIN CARE CONSULTANT [employer] LABORATORYC ENTRAL LABORATORY Date of LMP unknown 09/30/2017 8:28 AM SKIN CARE CONSULTANT [employer] LABORATORY-C ENTRAL LABORATORY Last Pap Date 02/02/17 09/30/2017 8:28 AM SKIN CARE CONSULTANT [employer] LABORATORY-C ENTRAL LABORATORY Last Pap Result ASCUS 8 8:28 AM SKIN CARE CONSULTANT [employer] LABORATORY-C ENTRAL LABORATORY Abnormal Pap or Ludowici Bx in last 5 years Yes 09/30/2017 8:28 AM SKIN CARE CONSULTANT [employer] LABORATORY-C ENTRAL LABORATORY Menstrual Status Postmenopausal 09/30/2017 8:28 AM SKIN CARE CONSULTANT [employer] LABORATORYC ENTRAL LABORATORY Ludowici Bx Done Today No 09/30/2017 8:28 AM SKIN CARE CONSULTANT [employer] ENTRAL LABORATORY Additional Information None Given 09/30/2017 8:28 AM SKIN CARE CONSULTANT [employer] ENTRAL LABORATORY Automated Review Successful 09/30/2017 8:28 AM SKIN CARE CONSULTANT [employer] EN[facility]AL LABOR[facility]ORY Comment:Specimen processed s uccessfully by automated retail department reset device, ThinPrep Imaging System, [employer] Note The pap test is a screening technique, not a diagnostic procedure. It is used primarily to screen for squamous cancers and precursor lesions. Published studies have shown that it is subject to both false negative and false positive results. The pap test should not be used as the sole means to diagnose or exclude pre-malignant and malignant lesions. Interpreted at [facility] ([facility], [facility], [facility], [facility], [facility], [facility], [facility]) 09/30/2017 8:28 AM SKIN CARE CONSULTANT [facility]-C ENTRAL LABORATORY Other (Cervical) Non-Blood / Unknown 09/21/2017 9:55 AM SKIN CARE CONSULTANT 09/21/2017 10:37 AM SKIN CARE CONSULTANT us Danitza Suero MD PATHOLOGY/CYTOLOGY F inal Result [facility] [address] [place] [address], [place] * XR MAMMO UNI DIAGNOSTIC RIGHT (01/14/2017 2:47 PM CDT) Anatomical Region Laterality Modality BREASTS, Breast Right Mammograph y, Radiographic Imaging 01/14/2017 2:47 PM CDT Narrative 01/14/2017 4:09 PM CDT XR MAMMO UNI DIAGNOSTIC RIGHT 01/14/2017 2:47 PM INDICATION: Breast Microcalcifications. COMPARISON: Screening images from 01/06/2017. These are baseline. No family history of breast malignancy. FINDINGS: Right breast magnification views of calcifications are performed. There are scattered areas of fibroglandular density. Microcalcifications in the 12:00 position, 13 cm posterior to the nipple of the right breast, are greater than 10 in number and vary in size, shape and intensity. These are mildly suspicious and stereotactic biopsy is recommended. The patient prefers to go to the [facility] for further consultation regarding stereotactic biopsy. Dr. Carpio office is notified for a referral to the [facility]. IMPRESSION: Grouped calcifications in the central right breast which are mildly suspicious. ACR BI-RADS Category 4: Suspicious. The findings are reviewed with the patient in person. She has elected to go to [facility] for stereotactic biopsy. Procedure Note Jacky Guaman MD - 01/14/2017 XR MAMMO UNI DIAGNOSTIC RIGHT 01/14/2017 2:47 PM INDICATION: Breast Microcalcifications. COMPARISON: Screening images from 01/06/2017. These are baseline. Nofamily history of breast malignancy. FINDINGS: Right breast magnification views of calcifications areperformed. There are scattered areas of fibroglandular density.Microcalcifications in the 12:00 position, 13 cm posterior to the nippleof the right breast, are greater than 10 in number and vary in size, shapeand intensity. These are mildly suspicious and stereotactic biopsy isrecommended. The patient prefers to go to the [facility] for furtherconsultation regarding stereotactic biopsy. Dr. Carpio office isnotified for a referral to the [facility]. IMPRESSION: Grouped calcifications in the central right breast which are mildlysuspicious. ACR BI-RADS Category 4: Suspicious. The findings are reviewed with the patient in person. She has elected togo to [facility] for stereotactic [facility]. 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 06/23/2016 12:30 PM Healthcare Directive 01/14/2010 RESUSCI TATION GUIDELINES Healthcare Directive 09/18/2009 RESUSCI TATION GUIDELINES * Full Code (Latest Code Status on File) Date Activated Date Inactivated Comments 03/25/2022 7:59 AM 03/25/2022 1:23 PM Question Answer Comments Code Status Discussion: Discussed * Full Code Date Activated Date Inactivated Comments 12/31/2017 9:09 PM 01/03/2018 3:03 PM * Full Code Date Activated Date Inactivated Comments 09/21/2017 7:25 AM 09/21/2017 2:17 PM * Full Code Date Activated Date Inactivated Comments 06/11/2017 7:32 PM 06/15/2017 2:35 PM Question Answer Comments Code Status Discussion: Per Advance Care Plan * Full Code Date Activated Date Inactivated Comments 05/14/2017 6:05 AM 05/14/2017 8:31 AM Care Teams Pit Crew Support Worker Relationship Specialty Start Date End Date Poly Wilhelm MD [address] [place] [address] PCP - General Family Practice 06/30/22
--- OUTSIDE RECORDS SUMMARY | 2024-12-14 09:25 | XMS_ITS | CCD ---
Author Organization Unknown Care Team Providers Care Work Counselor Name Role Phone [place], [place] Primary Care Provider Unava ilable Unavailable Chronic Care Management Unavaila ble Summary Purpose DataExchange Insurance Providers Payer name Policy type / Coverage type Covered alliance party ID Effective Begin Date Effective End Date [employer] Commercial Insurance [id number] Unknown Unkn own Family History Family History data not found Medication Administered No Medication Administered data Reason For Visit No Reason For Visit data
[2024-12-14 09:27] VITALS: BP 111/75; PULSE 96; RESP 18; TEMP 36.7; O2SAT 96; BMI 59.3
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
--- NOTE | 2024-12-14 10:05 | ED.GENADULT ---
HPI - General Adult General Chief complaint: Headache/Migraine Stated complaint: fell a week ago, headache still Time Seen by Provider: 12/14/24 09:51 Source: patient Limitations: no limitations History of Present Illness HPI narrative: 64-year-old female who resides in assisted living and uses a walker at baseline presents to the emergency department for evaluation of a headache for 1 week duration. She fell in her home a week ago and has had pain in the occipital region ever since. She initially noted swelling in the area and has since noticed that this has been going down. She notes mild photophobia and headache mainly in the occipital region. No focal neurological changes, no seizure, no loss of consciousness. No speech difficulties. No nausea and vomiting. She is concerned that the headache is still persistent. Does improve temporarily with Tylenol which she is taking twice daily but does not know how many mg she is currently taking. No history of anticoagulant use, no focal vision changes, no prior history of intracranial surgeries. Did not try any other interventions prior to coming to the ED. Ambulance initially evaluated her at the scene but she declined transport. Cannot list her past medical history but it is reviewed from her accompanying paperwork. She cannot list her medications but they were also reviewed from her accompanying paperwork and now are reflected in her medication list. Allergies are listed on her accompanying paperwork. Related Data Home Medications ?Medication ?Instructions ?Recorded ?Confirmed aspirin 81 mg chewable tablet 81 mg PO DAILY 04/01/24 12/14/24 cholecalciferol (vitamin D3) 50 50 mcg PO DAILY 04/01/24 12/14/24 mcg (2,000 unit) capsule (Vitamin D3) cyanocobalamin (vitamin B-12) 1,000 mcg PO DAILY 04/01/24 12/14/24 1,000 mcg tablet (Vitamin B-12) duloxetine 60 mg capsule,delayed 60 mg PO DAILY 04/01/24 12/14/24 release fluticasone furoate 200 1 inh inhalation DAILY 04/01/24 12/14/24 mcg-vilanterol 25 mcg/dose inhalation powder furosemide 20 mg tablet 20 mg PO QAM 04/01/24 12/14/24 gabapentin 300 mg capsule 300 mg PO DAILY 04/01/24 12/14/24 hydrocodone 7.5 mg-acetaminophen 1 tab PO Q6H 04/01/24 12/14/24 325 mg tablet hydroxyzine HCl 25 mg tablet 25 mg PO TID PRN 04/01/24 12/14/24 insulin glargine 100 unit/mL (3 20 unit subcut QPM 04/01/24 12/14/24 mL) subcutaneous pen (Lantus Solostar U-100 Insulin) levothyroxine 150 mcg capsule 150 mcg PO DAILY 04/01/24 12/14/24 magnesium hydroxide 400 mg/5 mL 15 ml PO DAILY PRN 04/01/24 12/14/24 oral suspension (Milk of Magnesia) megestrol 40 mg tablet 40 mg PO DAILY 04/01/24 12/14/24 metformin 1,000 mg tablet 1,000 mg PO BID 04/01/24 12/14/24 rosuvastatin 20 mg tablet 20 mg PO DAILY 04/01/24 12/14/24 zolpidem 10 mg tablet 10 mg PO QHS PRN 04/01/24 12/14/24 Allergies Allergy/AdvReac Type Severity Reaction Status Date / Time droperidol Allergy Unknown Verified 12/14/24 09:37 fluoxetine Allergy Unknown Verified 12/14/24 09:37 ibuprofen Allergy Unknown Verified 12/14/24 09:37 pollen extracts Allergy Unknown Verified 12/14/24 09:37 weed pollen Allergy Unknown Verified 12/14/24 09:37 [facility] Social History Smoking Status: Current every day smoker What tobacco products do you use: cigarettes Smoking packs per day: 0.5 Smoking cigarettes per day: 10.0 How often do you have a drink containing alcohol: never AUDIT-C Alcohol total score: 0 Non-prescribed substance use: denies use Exam Const: Vital Signs, click to edit/add: Vital Signs - 24 hr 12/14/24 09:27 Temperature 98.0 F Pulse Rate [Pulse Oximeter] 96 Respiratory Rate 18 Blood Pressure [Le ft Upper Arm] 111/75 Pulse Oximetry 96 Oxygen Delivery Me thod Room Air Documenting provider has reviewed patient's vital signs: yes Common normals: no apparent distress and alert General appearance: comfortable and well kempt HENMT: Common normals: normocephalic, TM's normal bilaterally and moist oral mucous membranes Head and scalp: normocephalic and scalp tenderness (Mild tenderness to palpation over occipital area, very mild swelling. No ); no palpable skull fracture and no raccoon eyes Face and sinus: normal facial exam and face symmetric Tympanic membrane: TM's normal bilaterally Mouth: oral and palatal mucosa normal Throat: posterior oropharynx normal Eye: Common normals: PERRL, EOMs intact bilaterally and conjunctivae normal General eye: normal appearance of both eyes Conjunctiva: conjunctiva(e) normal Pupil: PERRL Neck & C-Spine: Common normals: full ROM and no lymphadenopathy General: normal visual inspection Resp: Common normals: normal respiratory effort and no use of accessory muscles Effort & inspection: able to speak in complete sentences Cardio: Common normals: regular rate, regular rhythm, S1 normal heart sound, S2 normal heart sound and no murmurs Rate: regular rate Rhythm: regular rhythm Heart sounds: S1 normal and S2 normal Back & Pelvis: Common normals: thoracic and lumbar spine normal to inspection Neuro: Common normals: CN's II-XII intact bilaterally, moves all extremities and no focal motor deficits Sensorium/orientation: alert Speech: speech normal Other: Can pull herself up using side rails, normal truncal support. Normal movements in upper extremities, no tremor. Normal speech. Symmetric facial exam. No nystagmus. She can move the lower extremities have my request but declines to stand and walk due to the fact that these are difficult for her on a normal day. Psych: Appearance: well kempt Attitude: calm Activity/motor behavior: appropriate eye contact Attention/concentration: attention grossly intact Insight: fair Judgement: fair Skin: Common normals: no rashes or lesions noted General skin exam: no rashes or lesions noted Course Course ED Course: 64-year-old female with mechanical type fall to the occipital area 1 week ago. Persistent headache likely secondary to concussion but cannot exclude subdural hematoma, other intracranial hemorrhage, skull fracture, tension headache or other similar pathology. Head CT recommended. No indications for blood work as she is otherwise at baseline. Await findings. Reevaluation(s) Time of Reevaluation #1: 10:51 Reevaluation #1: Counseled patient on benign findings. Neurological exam is stable. Suspect mild concussion. Alarm symptoms reviewed that would warrant ED presentation. She verbalizes understanding and agreement. Written instructions provided. Vital Signs Vital signs: Initial Vital Signs Temperature 98.0 F 12/14/24 09:27 Temperature Source Temporal Artery Scan 12/14/24 09:27 Pulse Rate 96 12/14/24 09:27 Respiratory Rate 18 12/14/24 09:27 Blood Pressure 111/75 12/14/24 09:27 Blood Pressure Mean 87 12/14/24 09:27 Blood Pressure Position Sitting 12/14/24 09:27 Pulse Oximetry 96 12/14/24 09:27 Oxygen Delivery Method Room Air 12/14/24 09:27 Vital Signs Temperature 98.0 F 12/14/24 09:27 Pulse Rate 96 12/14/24 09:27 Respiratory Rate 18 12/14/24 09:27 Blood Pressure 111/75 12/14/24 09:27 Pulse Oximetry 96 12/14/24 09:27 Oxygen Delivery Method Room Air 12/14/24 09:27 Temperature 98.0 F 12/14/24 09:27 Pulse Rate 96 12/14/24 09:27 Respiratory Rate 18 12/14/24 09:27 Blood Pressure 111/75 12/14/24 09:27 Pulse Oximetry 96 12/14/24 09:27 Oxygen Delivery Method Room Air 12/14/24 09:27 Medical Decision Making Imaging Data CT scan - head: Attestation: I have reviewed the pertinent imaging results. My impression: Normal head CT, no signs of skull fracture, intracranial hemorrhage, mass or other abnormality. Radiologist's impression: FINDINGS: No acute traumatic injury is identified. No acute infarct. No intracranial mass or mass effect. No intracranial hemorrhage. No hydrocephalus. Intact skull base and cranial vault. Visualized orbits are without significant incidental findings. Visualized paranasal sinuses and mastoid air cells are clear. Unremarkable soft tissues. IMPRESSION: 1. No acute traumatic injury is identified. 2. No significant incidental findings. Please note that all CT scans at this facility use dose modulation, iterative reconstruction, and/or weight-based dosing when appropriate to reduce radiation dose to as low as reasonably achievable. Dictated by Turner Joe MD @ 12/14/2024 10:28:11 AM Discharge Plan Discharge Clinical Impression: Post-traumatic headache Patient Disposition: Home w/ Parent or Adult Condition: Stable Instructions: General Headache (ED) Additional Instructions: As we discussed, there thankfully no signs of head bleed, skull fracture or other major injury from your fall. Unfortunately, headaches like this can last for several weeks. Continue using Tylenol as needed. You should return to the emergency department if you have new neurological changes such as difficulty moving and extremity, speech changes, loss of consciousness, seizure. If you continue to have headaches after a few weeks, I would recommend a course of physical therapy. This can be arranged by your primary care provider. Activity Level: Activity as Tolerated Discharge Diet: Regular Prescriptions: No Action hydrocodone-acetaminophen 7.5-325 mg tablet 1 tab PO Q6H insulin glargine [Lantus Solostar U-100 Insulin] 100 unit/mL (3 mL) insulin pen 20 unit subcut QPM levothyroxine 150 mcg capsule 150 mcg PO DAILY megestrol 40 mg tablet 40 mg PO DAILY metformin 1,000 mg tablet 1,000 mg PO BID rosuvastatin 20 mg tablet 20 mg PO DAILY zolpidem 10 mg tablet 10 mg PO QHS PRN cyanocobalamin (vitamin B-12) [Vitamin B-12] 1,000 mcg tablet 1,000 mcg PO DAILY cholecalciferol (vitamin D3) [Vitamin D3] 50 mcg (2,000 unit) capsule 50 mcg PO DAILY aspirin 81 mg tablet,chewable 81 mg PO DAILY duloxetine 60 mg capsule,delayed release(DR/EC) 60 mg PO DAILY fluticasone furoate-vilanterol 200-25 mcg/dose blister with device 1 inh inhalation DAILY furosemide 20 mg tablet 20 mg PO QAM gabapentin 300 mg capsule 300 mg PO DAILY hydroxyzine HCl 25 mg tablet 25 mg PO TID PRN magnesium hydroxide [Milk of Magnesia] 400 mg/5 mL suspension 15 ml PO DAILY PRN Follow Up/Referrals: Provider,Not a Local [Primary Care Provider] - Stand Alone Forms: [employer] Info Instructions
--- OUTSIDE RECORDS SUMMARY | 2024-12-14 10:25 | XMS_ITS | Clinical Summary ---
Author Organization [facility] Address [address] [place] [id number] Care Team Providers Care Bank Boss Name Role Phone Poly Wilhelm MD Primary Care Provider + Allergies Active Allergy Reactions Criticality Noted Date Comments Droperidol Rash,Wheezing High 02/27/2010 Fluoxetine Rash High 01/17/2010 Ibuprofen Stomach Upset,Nausea And Vomiting Medium 03/23/2017 Pollen Extracts Shortness Of Breath,Runny Nose Unknown 03/23/2017 Itchy watery eyes, exacerbates asthma [place] Pollen Itching,Dyspnea High 03/23/2017 Seasonal Allergies:Allergic Rhinitis, [...] bed. Length of need 99 months. 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) for continuous blood glucose monitor (CGM)Indications:Ty pe [...] rder (E-cance l not sent)) Dexcom G6 Bookkeeping Teacher for continuous blood glucose monitor (CGM)Indications:Ty pe [...] 02/22/2017 Steroid-induced hyperglycemia 05/01/2012 06/12/2017 Overview (05/01/2012): NEKOOSA December 2009 Controlled atrial fibrillation 04/08/2012 04/27/2012 Acute on Chronic Respiratory acidosis 06/21/2011 06/12/2017 Altered mental status 06/21/20112016 Pain, joint, knee, right 06/16/2011 Restless legs syndrome (RLS) 06/10/2011 06/21/2011 Unspecified psychosis 04/22/20112016 Steroid-induced hyperglycemia 04/30/2010 05/01/2012 Overview (04/27/2012): NEKOOSA 01/07/10 ? DUE TO STEROIDS Contusion of [...] Type Department Care Team Description 12/11/2024 Refill [facility] [address] [place] [address] Poly Wilhelm MD Refill Request (Dexcom G6 sensors) 11/28/2024 Refill [facility] [address] [place] [address] Poly Wilhelm MD Refill Request (Lantus) 11/20/2024 Refill [facility] [address] [place] [address] Poly Wilhelm MD Refill Request (Hydrocodone and dexcom 6 nuclear reactor engineer) 11/16/2024 Orders Only [facility] [address] [place] [address] Ailin Roberson, PharmD <No scans attached> 11/06/2024 Refill [facility] [address] [place] [address] Poly Wilhelm MD Refill Request (Hydroxyzine HCL 25mg and Zolpidem 10mg) 10/24/2024 Refill [facility] [address] [place] [address] Poly Wilhelm MD Refill Request (Dexcom G6 MIS Transmit ) 10/20/2024 Refill [facility] [address] [place] [address] Poly Wilhelm MD Refill Request (Hydrocodone ) 10/16/2024 Orders Only [facility] [address] [place] [address] Poly Wilhelm MD <No scans attached> 10/03/2024 Telephone [facility] [address] [place] [address] Poly Wilhelm MD Results 09/26/2024 3:55 PM BASKET MACHINE OPERATOR Office Visit [facility] [address] [place] [address] Poly Wilhelm MD Diabetes; Medication Management 09/26/2024 Travel 09/19/2024 Refill [facility] [address] [place] [address] Poly Wilhelm MD Refill Request (Montelukast, Tolterodine, [...] on file Legal Sex Female 6:42 AM BASKET MACHINE OPERATOR Gender Identity Not on file Sexual Orientation Not on file Obstetrics History Last Filed Vital Signs Vital Sign Reading Time Taken Comments Blood Pressure 124/88 08/23/2024 1:01 PM BASKET MACHINE OPERATOR Pulse 95 09/26/2024 3:31 PM BASKET MACHINE OPERATOR Temperature 36.5 C (97.7 F) 07/05/2024 10:55 AM BASKET MACHINE OPERATOR Respiratory Rate 18 07/05/2024 10:55 AM BASKET MACHINE OPERATOR Oxygen Saturation 95% 09/26/2024 3:31 PM BASKET MACHINE OPERATOR Inhaled Oxygen Concentration - - Weight 150.4 kg (331 lb 8 oz) 09/26/2024 3:31 PM BASKET MACHINE OPERATOR Height 162.6 cm (5' 4) 11/23/2023 11:16 [...] history exists Medical Devices Implanted Type Area Structural Manager Device Identifier Shelf Expiration Date Model / Serial / Lot Sys Intrauterine Mirena - [id number] Implanted:Qty: 1 on 05/14/2017 by Silvia Brown MD at [facility] N/A: Uterus [employer] 12/13/2019 [id number] / / [id number] Procedures Procedure Name Priority Date/Time Associated Diagnosis Comments OR BLOOD COUNT COMPLETE AUTO&AUTO DIFRNTL WBC Routine 09/26/2024 5:02 PM BASKET MACHINE OPERATOR Iron deficiency anemia, unspecified iron deficiency anemia type COMP METABOLIC PANEL Routine 09/26/2024 4:51 PM BASKET MACHINE OPERATOR Uncontrolled type 2 diabetes mellitus with hyperglycemia (HC) TSH WITH REFLEX Routine 09/26/2024 4:51 PM BASKET MACHINE OPERATOR Hypothyroidism, unspecified type HEMOGLOBIN A1C Routine 09/26/2024 4:51 PM BASKET MACHINE OPERATOR Uncontrolled type 2 diabetes mellitus with hyperglycemia (HC) LIPID PANEL Routine 09/26/2024 4:51 PM BASKET MACHINE OPERATOR Uncontrolled type 2 diabetes mellitus with hyperglycemia (HC) IRON PLUS IRON BINDING CAP Routine 09/26/2024 4:51 PM BASKET MACHINE OPERATOR Iron deficiency anemia, unspecified iron deficiency anemia type FERRITIN Routine 09/26/2024 4:51 PM BASKET MACHINE OPERATOR Iron deficiency anemia, unspecified iron deficiency anemia type TRANSFERRIN Routine 09/26/2024 4:51 PM BASKET MACHINE OPERATOR Iron deficiency anemia, unspecified iron deficiency anemia type COLONOSCOPY 03/25/2022 8:27 AM CDT ANTI HCV Add On 10/03/2019 4:03 PM BASKET MACHINE OPERATOR Need for hepatitis C screening test COTTON HEADER THIN PREP PAP DIAGNOSTIC IMAGED Today 09/21/2017 9:55 AM BASKET MACHINE OPERATOR XR MAMMO UNI DIAGNOSTIC RIGHT Routine 01/14/2017 2:47 PM CDT Breast microcalcifications ANTI HIV 1/2 Early AM 01/07/2010 10:15 AM CDT from Last 3 Months or Most Recently Relevant to Health Maintenance Results * (ABNORMAL) CBC AND DIFFERENTIAL (09/26/2024 5:02 PM BASKET MACHINE OPERATOR) WHITE BLOOD CELL COUNT 11.6(H) 3.8 - 10.8 Thousand/u L [facility] (Urgent Care) RED BLOOD CELL COUNT 4.43 3.80 - 5.10 Million/uL [facility] (Urgent [facility]) HEMOGLOBIN 11.6(L) 11.7 - 15.5 g/dL [facility] (Urgent [facility]) HEMATOCRIT 37.2 35.0 - 45.0 % [facility] (Urgent [facility]) MCV 84.0 80.0 - 100.0 fL [facility] (Urgent [facility]) MCH 26.2(L) 27.0 - 33.0 pg [facility] (Urgent [facility]) MCHC 31.2(L) 32.0 - 36.0 g/dL [facility] (Urgent [facility]) Comment: For adults, a slight decrease in the calculated MCHC value (in the range of 30 to 32 g/dL) is most likely not clinically significant; however, it should be interpreted with caution in correlation with other red cell parameters and the patient's clinical condition. RDW 14.4 11.0 - 15.0 % [facility] ([facility]gent [facility]) PLATELET COUNT 464(H) 140 - 400 Thousand/u L [facility] ([facility]gent [facility]) MPV 9.8 7.5 - 12.5 fL [facility] ([facility]gent [facility]) ABSOLUTE NEUTROPHILS 6,937 1,500 - 7,800 cells/uL [facility] ([facility]gent [facility]) ABSOLUTE LYMPHOCYTES 3,561 850 - 3,900 cells/uL [facility] ([facility]gent [facility]) ABSOLUTE MONOCYTES 754 200 - 950 cells/uL [facility] ([facility]gent [facility]) ABSOLUTE EOSINOPHILS 325 15 - 500 cells/uL [facility] ([facility]gent [facility]) ABSOLUTE BASOPHILS 23 0 - 200 cells/uL [facility] ([facility]gent [facility]) NEUTROPHILS 59.8 % [facility] ([facility]gent [facility]) LYMPHOCYTES 30.7 % [facility] ([facility]) MONOCYTES 6.5 % [facility] ([facility]) EOSINOPHILS 2.8 % [facility] ([facility]gent [facility]) BASOPHILS 0.2 % [facility] ([facility]) Blood BLOOD SPECIMEN / Unknown 09/26/2024 5:02 PM BASKET MACHINE OPERATOR 09/26/2024 5:02 PM BASKET MACHINE OPERATOR Narrative [facility] - 09/26/2024 5:11 PM BASKET MACHINE OPERATOR SPLIT 09/26/2024 FROM [id number] Poly Wilhelm MD HEMATOLOGY Final Re sult [facility] [address] [place] [address], [place] [phone] [facility] (Urgent Care) [address] [place] [address] * (ABNORMAL) HEMOGLOBIN A1C (09/26/2024 4:51 PM BASKET MACHINE OPERATOR) HEMOGLOBIN A1C 7.7(H) <5.7 % of total [...] BLOOD SPECIMEN / Unknown 09/26/2024 4:51 PM BASKET MACHINE OPERATOR 09/26/2024 4:52 PM BASKET MACHINE OPERATOR Narrative [facility] - 09/27/2024 4:15 AM BASKET MACHINE OPERATOR MULTIPLE TESTING PRIORITIES; ROUTINE TESTING TO FOLLOW. Poly Wilhelm MD CHEMISTRY Final Re sult [facility] [address] [place] [address], [facility] [address] [place] [address] * TSH WITH REFLEX (09/26/2024 4:51 PM BASKET MACHINE OPERATOR) TSH W/REFLEX TO FT4 1.09 0.40 - 4.50 mIU/L [facility] Blood BLOOD SPECIMEN / Unknown 09/26/2024 4:51 PM BASKET MACHINE OPERATOR 09/26/2024 4:52 PM BASKET MACHINE OPERATOR Narrative [facility] - 09/27/2024 5:09 AM BASKET MACHINE OPERATOR MULTIPLE TESTING PRIORITIES; ROUTINE TESTING TO FOLLOW. Poly Wilhelm MD CHEMISTRY Final Re sult Performing Organization Address [facility] Co de Phone Number [employer]Base [facility] [address] [place] [phone], [facility] [address] [place] [address] * (ABNORMAL) IRON PLUS IRON BINDING CAP (09/26/2024 4:51 PM BASKET MACHINE OPERATOR) IRON, TOTAL 38(L) 45 - 160 mcg/dL [facility] IRON BINDING CAPACITY 433 250 - 450 mcg/dL (calc) [facility] % SATURATION 9(L) 16 - 45 % (calc) [facility] Blood BLOOD SPECIMEN / Unknown 09/26/2024 4:51 PM BASKET MACHINE OPERATOR 09/26/2024 4:52 PM BASKET MACHINE OPERATOR Narrative [facility] - 09/27/2024 5:09 AM BASKET MACHINE OPERATOR MULTIPLE TESTING PRIORITIES; ROUTINE TESTING TO FOLLOW. Poly Wilhelm MD CHEMISTRY Final Re sult Performing Organization Address [facility] Co de Phone Number [employer]Base [facility] [address] [place] [phone], [facility] [address] [place] [phone] * TRANSFERRIN (09/26/2024 4:51 PM BASKET MACHINE OPERATOR) Pathologist [facility] TRANSFERRIN 340 188 - 341 mg/dL [facility] Blood BLOOD SPECIMEN / Unknown 09/26/2024 4:51 PM BASKET MACHINE OPERATOR 09/26/2024 4:52 PM BASKET MACHINE OPERATOR Narrative [facility] [place] - 09/28/2024 2:20 AM BASKET MACHINE OPERATOR MULTIPLE TESTING PRIORITIES; ROUTINE TESTING TO FOLLOW. Poly Wilhelm MD CHEMISTRY Final Re sult Performing Organization Address City/[facility]/ZIP Co de Phone Number [facility] [place] [address] [place] [address], [facility] [address] [place] [address] * (ABNORMAL) FERRITIN (09/26/2024 4:51 PM BASKET MACHINE OPERATOR) Pathologist [facility] FERRITIN 15(L) 16 - 288 ng/mL [facility] Blood BLOOD SPECIMEN / Unknown 09/26/2024 4:51 PM BASKET MACHINE OPERATOR 09/26/2024 4:52 PM BASKET MACHINE OPERATOR Narrative [facility] - 09/27/2024 5:19 AM BASKET MACHINE OPERATOR MULTIPLE TESTING PRIORITIES; ROUTINE TESTING TO FOLLOW. Poly Wilhelm MD CHEMISTRY Final Re sult [facility] [address] [place] [address], [facility] [address] [place] [address] * (ABNORMAL) LIPID PANEL (09/26/2024 4:51 PM BASKET MACHINE OPERATOR) [facility] CHOLESTEROL, TOTAL 105 <200 mg/dL [facility] HDL CHOLESTEROL 40(L) > OR = 50 mg/dL [facility] TRIGLYCERIDES 146 <150 mg/dL [facility] LDL-CHOLESTEROL 42 mg/dL (calc) [facility] Comment: Reference range: <100 Desirable range <100 mg/dL for primary prevention; <70 mg/dL for patients with CHD or diabetic patients with > or = 2 CHD risk factors. LDL-C is now calculated using the Chidi-Liam calculation, which is a validated novel method providing better accuracy than the Friedewald equation in the estimation of LDL-C. Chidi SS et al. RAHEEM. 2013;310(19): 0329-1508 (http://education.MYOS/faq/HPD338) CHOL/HDLC RATIO 2.6 <5.0 (calc) [facility] NON HDL CHOLESTEROL 65 <130 mg/dL (calc) [facility] Comment: For patients with diabetes plus 1 major ASCVD risk factor, treating to a non-HDL-C goal of <100 mg/dL (LDL-C of <70 mg/dL) is considered a therapeutic option. Blood BLOOD SPECIMEN / Unknown 09/26/2024 4:51 PM BASKET MACHINE OPERATOR 09/26/2024 4:52 PM BASKET MACHINE OPERATOR Narrative [facility] - 09/27/2024 5:09 AM BASKET MACHINE OPERATOR MULTIPLE TESTING PRIORITIES; ROUTINE TESTING TO FOLLOW. Poly Wilhelm MD CHEMISTRY Final Re sult [facility] [address] [place] [address], [facility] [address] [place] [address] * (ABNORMAL) COMP METABOLIC PANEL (09/26/2024 4:51 PM BASKET MACHINE OPERATOR) [facility] GLUCOSE 129(H) 65 - 99 mg/dL [facility] Comment: Fasting reference interval For someone without known diabetes, a glucose value >125 mg/dL indicates that they may have diabetes and this should be confirmed with a follow-up test. UREA NITROGEN (BUN) 11 7 - 25 mg/dL [facility] CREATININE 0.91 0.50 - 1.05 mg/dL [facility] EGFR 71 > OR = 60 mL/min/1. 73m2 [facility] BUN/CREATININE RATIO SEE NOTE: 6 - 22 (calc) [facility] Comment: Not Reported: BUN and Creatinine are within reference range. SODIUM 137 135 - 146 mmol/L [facility] POTASSIUM 4.5 3.5 - 5.3 mmol/L [facility] CHLORIDE 97(L) 98 - 110 mmol/L [facility] CARBON DIOXIDE 30 20 - 32 mmol/L [facility] CALCIUM 9.1 8.6 - 10.4 mg/dL [facility] PROTEIN, TOTAL 6.4 6.1 - 8.1 [...] BLOOD SPECIMEN / Unknown 09/26/2024 4:51 PM BASKET MACHINE OPERATOR 09/26/2024 4:52 PM BASKET MACHINE OPERATOR Narrative [facility] - 09/27/2024 5:09 AM BASKET MACHINE OPERATOR MULTIPLE TESTING PRIORITIES; ROUTINE TESTING TO FOLLOW. us Poly Wilhelm MD CHEMISTRY Final Re sult [facility] [address] [place] [address], [facility] [address] [place] [address] * COLONOSCOPY (03/25/2022 8:27 AM CDT) 03/25/2022 [...] provided and informed consent obtained. The endoscope [id number] was introduced through the anus and advanced to the cecum, identified by appendiceal orifice andileocecal valve. The colonoscopy was performed without difficulty. The patient tolerated the procedure well. The quality of the bowel preparationwas evaluated using the BBPS ([place] Bowel Preparation Scale) with scores of: Right [...] Result * ANTI HCV (10/03/2019 4:03 PM BASKET MACHINE OPERATOR) HEPATITIS C ANTIBODY Non-React haley Non-React haley 10/03/2019 9:15 PM BASKET MACHINE OPERATOR [facility] Comment:Antibodies to HCV no t detected; does not exclude the possibility of exposure to HCV. Blood BLOOD SPECIMEN / Unknown Venipuncture / Unknown 10/03/2019 4:03 PM BASKET MACHINE OPERATOR 10/03/2019 4:05 PM BASKET MACHINE OPERATOR Blake Carpio MD SEND OUTS Final Re sult [facility] [address] [place] [address], [place] * (ABNORMAL) COTTON HEADER THIN PREP PAP DIAGNOSTIC IMAGED (09/21/2017 9:55 AM BASKET MACHINE OPERATOR) Case Report Gynecologic Cytology Report Case: [id number] Authorizing Provider: Danitza Salinas, Collected: 09/21/2017 0955 Ordering Location: [facility] Received: 09/21/2017 1037 First Screen: Kailash Mtz Rescreen: Chel Childress Specimen: COTTON HEADER ThinPrep Vial Diagnostic, Cervical 09/30/2017 8:28 AM BASKET MACHINE OPERATOR [facility] ENTRAL LABORATORY INTERPRETATION/ RESULT UNSATISFACTORY FOR EVALUATION (UNS)(A) (none) 09/30/2017 8:28 AM BASKET MACHINE OPERATOR [facility]-C ENTRAL LABORATORY at 0828 BASKET MACHINE OPERATOR SPECIMEN ADEQUACY Specimen processed and examined, but unsatisfactory for evaluation of epithelial abnormality because of: Scant cellularity Foreign material/lubrican t 09/30/2017 8:28 AM BASKET MACHINE OPERATOR [employer] [facility] HPV REQUEST HPV if ASCUS 09/30/2017 8:28 AM BASKET MACHINE OPERATOR [facility] [facility] Date of LMP unknown 09/30/2017 8:28 AM BASKET MACHINE OPERATOR [facility] Last Pap Date 02/02/17 09/30/2017 8:28 AM BASKET MACHINE OPERATOR [facility] Last Pap Result ASCUS 8 8:28 AM BASKET MACHINE OPERATOR [facility] Abnormal Pap or [place] Bx in last 5 years Yes 09/30/2017 8:28 AM BASKET MACHINE OPERATOR [facility] Menstrual Status Postmenopausal 09/30/2017 8:28 AM BASKET MACHINE OPERATOR [facility] [place] Bx Done Today No 09/30/2017 8:28 AM BASKET MACHINE OPERATOR [facility] Additional Information None Given 09/30/2017 8:28 AM BASKET MACHINE OPERATOR [facility] Automated Review Successful 09/30/2017 8:28 AM BASKET MACHINE OPERATOR [facility] Comment:Specimen processed s uccessfully by automated edge cutting machine operator device, ThinPrep Imaging System, [employer] Note The pap test is a screening technique, not a diagnostic procedure. It is used primarily to screen for squamous cancers and precursor lesions. Published studies have shown that it is subject to both false negative and false positive results. The pap test should not be used as the sole means to diagnose or exclude pre-malignant and malignant lesions. Interpreted at [facility] (Central Lab, [facility], [facility], [facility], [facility], [facility], [facility]) 09/30/2017 8:28 AM BASKET MACHINE OPERATOR [facility] Other (Cervical) Non-Blood / Unknown 09/21/2017 9:55 AM BASKET MACHINE OPERATOR 09/21/2017 10:37 AM BASKET MACHINE OPERATOR us Danitza Suero MD PATHOLOGY/CYTOLOGY F inal Result [facility] [address] [place] [address], [place] * XR MAMMO UNI DIAGNOSTIC RIGHT [...] The patient prefers to go to the [facility] for further consultation regarding stereotactic biopsy. Dr. Carpio office is notified for a referral to the [facility]. IMPRESSION: Grouped calcifications in the central right breast which are mildly suspicious. ACR BI-RADS Category 4: Suspicious. The findings are reviewed with the patient in person. She has elected to go to [facility] for stereotactic biopsy. Procedure Note Jacky Guaman [...] The patient prefers to go to the [facility] for furtherconsultation regarding stereotactic biopsy. Dr. Carpio office isnotified for a referral to the [facility]. IMPRESSION: Grouped calcifications in the central right breast which are mildlysuspicious. ACR BI-RADS Category 4: Suspicious. The findings are reviewed with the patient in person. She has elected togo to [facility] for stereotactic biopsy. us Blake Carpio MD MAMMO Final Re sult * ANTI HIV 1/2 (01/07/2010 10:15 AM CDT) ANTI HIV 1/2 Non-reacti ve [facility] Blood specimen (specimen) BLOOD SPECIMEN / Unknown 01/07/2010 10:15 AM CDT 01/06/2010 10:01 PM CDT us Neeraj Dougherty MD SEND OUTS Final Result [facility] INTERNAL ZIP [address] [place] [phone] from Last 3 Months or Most Recently Relevant to Health Maintenance Insurance [employer] CHOICE CARE [facility] Advance Directives Documents on File Type Date Recorded Patient Primary Operator Expl anation POLST 06/23/2016 12:30 PM Healthcare [...] 6:05 AM 05/14/2017 8:31 AM Care Teams Bank Boss Relationship Specialty Start Date End Date Poly Wilhelm MD [address] [place] [address] PCP - General Family Practice 06/30/22
--- OUTSIDE RECORDS SUMMARY | 2024-12-14 10:25 | XMS_ITS | CCD ---
Author Organization Unknown Care Team Providers Care Executive Assistant To President Name Role Phone Automotive Quality Manager, [place] Primary Care Provider Unava ilable Unavailable Chronic Care Management Unavaila ble Summary Purpose DataExchange Insurance Providers Payer name Policy type / Coverage type Covered republican ID Effective Begin Date Effective End Date [employer] Commercial Insurance [id number] Unknown Unkn own Family History Family History data not found Medication Administered No Medication Administered data Reason For Visit No Reason For Visit data
--- OUTSIDE RECORDS SUMMARY | 2024-12-14 10:25 | XMS_ITS | CCD ---
Author Organization Unknown Care Team Providers Care Asphalt Machine Operator Name Role Phone Cable Former, [place] Primary Care Provider Unava ilable Unavailable Chronic Care Management Unavaila ble Summary Purpose DataExchange Insurance Providers Payer name Policy type / Coverage type Covered green party ID Effective Begin Date Effective End Date [employer] Commercial Insurance [id number] Unknown Unkn own Family History Family History data not found Medication Administered No Medication Administered data Reason For Visit No Reason For Visit data
== END 2024-12-14 11:35 | disposition home or self-care (01) ==
PROVIDERS: Emergency Provider Family Medicine
DX: G44.309 Post-traumatic headache, unspecified, not intractable (principal); W19.XXXA Unspecified fall, initial encounter
CPT/HCPCS: 70450; 99283; 99284

== ENCOUNTER 2025-02-21 13:47 | Emergency (ER) | payer MEDICAID, SELFPAY ==
--- OUTSIDE RECORDS SUMMARY | 2010-01-22 11:43 | XMS_ITS | Continuity of Care Document ---
Author Organization [facility] Address [address] [address] [place] [address] Phone Care Team Providers Care Parking Meter Collector Name Role Phone Les Galan Unavailable Unavailable Procedures Procedure Date Subsqt Hosp-da E&m Minr Compl 0 Subsqt Hosp-da E&m Minr Compl 0 Ugi Endo; W/bx 1/mx Init Inpt Cons New/est Mod-hi 0 Advance Directives Directive Yes / No Effective Date File Name No Information Encounters Encounter Description Practice Location Reason(s) For Visit Diagnoses Date Provider Providers Copied on Encounter [facility], [address] [address], [place], [place], [id number], [place] tel:[phone] [facility] No Information 0 Iftikhar PAC Les. [address] [facility], [address], [id number], [place]. tel:[phone] Referring Provider: Blake Quinn, [address] , [place], [address]. tel:[phone] Subsqt Hosp-da E&m Minr Compl [facility], [address] [address], [place], [place], [id number], [place] tel:[phone] [facility] No Information 0 Iftikhar PAC Les. [address] [facility], [facility] [address], [place], [place], [id number], [place]. tel:[phone] Referring Provider: Les SOW, [address], [address] . tel:[phone] [facility], [address] [address], [place], [place], [id number], [phone] [facility] No Information 6201 0 No Information Referring Provider: Darwin Fish, [address], [place], [address]. tel:[phone] Init Inpt Cons New/est Mod-hi [facility], [address] [address], [place], [place], [id number], tel:[phone] [facility] No Information 5201 0 No Information Referring Provider: Darwin Fish, [address], [place], [address]. tel:[phone] Family History Family Member Type Diagnosis Age At Onset No Information Payers Payer name Insurance type Covered libertarian ID Authoriza tion(s) No Information Social History Type Description Quantity Date Captured Comments Sex Female Smoking Status No Information Chief Complaint And Reason For Visit No Information Reason For Referral Reason For Referral No Information History Of Present Illness Encounter Date Complaint History Of Prese nt Illness No Information Functional Status Date Functional Assessmen t No Information Instructions Date Instruction Additional Infor mation No Information Assessments Type Assessment Date No Information Patient Care Teams Name Effective Dates (start - stop) Status Members No Information
--- OUTSIDE RECORDS SUMMARY | 2010-01-22 11:43 | XMS_ITS | Continuity of Care Document ---
Author Organization [facility] Address [address] [address] [place] [address] Phone Care Team Providers Care Digital Campaign Manager Name Role Phone Les Galan Unavailable Unavailable [...] Encounter [facility], [address] [address], [place], [place], [id number], [place] tel:[phone] [facility] No Information 0 Iftikhar PAC Les. [address] [facility], [address], [id number], [place]. tel:[phone] Referring Provider: Blake Quinn, [address] , [place], [address]. tel:[phone] Subsqt Hosp-da E&m Minr Compl [facility], [address] [address], [place], [place], [id number], [place] tel:[phone] [place] [facility] No Information 0 Iftikhar PAC Les. [address] [facility], [facility] [address], [place], [place], [id number], [place]. tel:[phone] Referring Provider: Les SOW, [address], [address] . tel:[phone] [facility], [address] [address], [place], [place], [id number], [phone] [facility] No Information 6201 0 No Information Referring Provider: Darwin Fish, [address], [place], [address]. tel:[phone] Init Inpt Cons New/est Mod-hi [facility], [address] [address], [place], [place], [id number], tel:[phone] [facility] No Information 5201 0 No Information Referring Provider: Darwin Fish, [address], [place], [address]. tel:[phone] Family History Family Member Type Diagnosis Age At Onset No Information Payers Payer name Insurance type Covered democrat ID Authoriza tion(s) No Information Social History [...]
[2025-02-21] VITALS (10 sets, daily range): BP systolic 128–140; BP diastolic 56–68; PULSE 85–110; RESP 21–22; TEMP 35.7; O2SAT 97–100; BMI 54.9
--- NOTE | 2025-02-21 | CRLHL7_ITS ---
For Patients: As a result of the Century Cures Act, medical imaging exams and procedure reports are released immediately into your electronic medical record. You may view this report before your referring provider. If you have questions, please contact your health care provider. INDICATION: Leg pain and swelling TECHNIQUE: Ultrasound venous duplex lower right extremity. Compression venous exam was performed using nails-scale, color Doppler, and spectral Doppler imaging. COMPARISON: None. FINDINGS: Sonographic imaging demonstrates the right common femoral, deep femoral, superficial femoral, popliteal, posterior tibial and greater saphenous and the contralateral left common femoral veins to be fully compressible with normal color Doppler blood flow. IMPRESSION: Normal right lower extremity venous ultrasound, no sign of deep venous thrombosis. Dictated by Kailash Brian MD @ 02/21/2025 3:58:00 PM (Electronically Signed)
--- OUTSIDE RECORDS SUMMARY | 2025-02-21 13:49 | XMS_ITS | Clinical Summary ---
Author Organization [facility] Address [address] [place] [address] Care Team Providers Care Switch Tender Name Role Phone Poly Wilhelm MD Primary Care Provider + Allergies Active Allergy Reactions Criticality Noted Date Comments Droperidol Rash,Wheezing High 02/27/2010 Fluoxetine Rash High 01/17/2010 Ibuprofen Stomach Upset,Nausea And Vomiting Medium 03/23/2017 Pollen Extracts Shortness Of Breath,Runny Nose Unknown 03/23/2017 Itchy watery eyes, exacerbates asthma Winston Pollen Itching,Dyspnea High 03/23/2017 Seasonal Allergies:Allergic Rhinitis, [...] bed. Length of need 99 months. Bed materials handler:no 1 Each 08/03/20 22 Active NebulizerIndication s:COPD [...] morning. 90 Tablet 1 09/26/19 25 Active levothyroxine (SYNTHROID) 150 mcg [...] mg) by mouth at bedtime. 28 Tablet 12 09/26/19 25 Active QUEtiapine (SEROQUEL) 50 mg [...] obesity with BMI of 50.0-59.9, adult (HC) Bariatic 4 wheel walker with bench seat. [...] at bedtime. 30 Tablet 11/08/19 25 Active director child (Dexcom G6 Trade Show Specialist) for continuous blood glucose monitor (CGM)Indications:Ty pe [...] days 9 Each 3 12/13/19 25 Active acetaminophen 325 mg tablet 12/06/19 25 Active gabapentin 300 mg capsuleIndications: Chronic musculoskeletal pain,Chronic low back pain, unspecified back pain laterality, unspecified whether sciatica present,Restless leg syndrome Take 2 Capsules (600 mg) by mouth at bedtime. 180 Capsule 3 01/19/20 25 Active HYDROcodone-acetami nophen (7.5-325 mg/tablet)Indicatio ns:Chronic musculoskeletal pain,Chronic low back pain, unspecified back pain laterality, unspecified whether sciatica present Take 1 Tablet by mouth every 6 hours. DO NOT EXCEED 4,000 MG ACETAMINOPHEN IN 24 HOURS-- 120 Tablet 01/19/20 25 Active Active Problems Problem Noted Date Diagnosed Date Iron deficiency 07/04/2024 Iron deficiency anemia 10/26/2022 Morbid obesity with BMI of 50.0-59.9, adult 07/16 Chronic musculoskeletal pain 08/03/2022 Personal history of colonic polyps 03/25/2022 Schizophrenia, unspecified type 02/25/2022 Heart failure 06/13/2021 Essential (hemorrhagic) thrombocythemia 06/13/20 21 Other specified glaucoma 01/08/2021 Controlled type 2 diabetes m ellitus with complication, with long-term current use of insulin 12/11/2019 Substance abuse in remission 03/31/2019 History [...] AM Controlled substance agreement signed 04/08/2012 Overview (01/18/2025): Updated CSA 01/18/25 CRLD (chronic restrictive lung disease) 09/19/19 12 [...] Date Monoparesis of upper extremity 06/13/2021 10/12/2023 Moderate persistent asthma w ithout complication 12/11/2019 01/18/2025 Auditory hallucination 03/31/201902/25 Uncontrolled type 2 diabetes [...] 02/22/2017 Steroid-induced hyperglycemia 05/01/2012 06/12/2017 Overview (05/01/2012): BREEDING December 2009 Controlled atrial fibrillation 04/08/2012 04/27/2012 Acute on Chronic Respiratory acidosis 06/21/2011 06/12/2017 Altered mental status 06/21/20112016 Pain, joint, knee, right 06/16/2011 Restless legs syndrome (RLS) 06/10/2011 06/21/2011 Unspecified psychosis 04/22/20112016 Steroid-induced hyperglycemia 04/30/2010 05/01/2012 Overview (04/27/2012): BREEDING 01/07/10 ? DUE TO STEROIDS Contusion of [...] Encounters Date Type Department Care Team Description 02/19/2025 1:11 PM CDT - 02/19/2025 11:59 PM CDT Hospital Encounter [facility] [address] [facility] [address] Iron deficiency (Primary Dx) 02/19/2025 Refill [facility] [address] [place] [address] Poly Wilhelm MD Refill Request (Hydroco/APAP Tab 7.5-325) 02/19/2025 Travel 02/15/2025 9:30 AM CDT - 02/15/2025 11:59 PM CDT Hospital Encounter [facility] [address] [place] [address] Iron deficiency (Primary Dx) 02/15/2025 Travel 01/30/2025 Telephone [facility] [address] [place] [address] [place], [facility] Cancer Appointment 01/26/2025 Telephone [facility] [address] [place] [address] Poly Wilhelm MD Results 01/18/2025 2:40 PM CDT Office Visit [facility] [address] [place] [address] Poly Wilhelm MD Medication Management; Leg Pain/problem (Restless leg syndrome ); Appointment Reminder (Set up diabetic retinal eye exam) 01/18/2025 Travel 12/15/2024 Refill [facility] [address] [place] [address] Poly Wilhelm MD Refill Request 12/11/2024 Refill [facility] [address] [place] [address] Poly Wilhelm MD Refill Request (Dexcom G6 sensors) 11/28/2024 Refill [facility] [address] [place] [address] Poly Wilhelm MD Refill Request (Lantus) from Last 3 Months Immunizations Immunization Administration Dates Next Due COVID-19 VACCINE SPIKEVAX (M ODERNA 50MCG/0.5ML) 12YO+ PFS 06/30/2024 COVID-19 vaccine (RealiusBio NTech 30mcg/0.3mL) 12YO+ BIVALENT PF, MDV 06/12/2022 COVID-19 vaccine ([employer] CyLab-Bio NTech 30mcg/0.3mL) PF, MDV 06/13/2021,12/10/2020,11/19/2020 Hepatitis B (Adult) 03/08/2013 INFLUENZA, IIV3 PF (AGE >= 6 MO) 06/30/2024,08/16,04/30/2010 Influenza A (H1N1), Inactiva marcie (Age >=3 Years) 08/01/2009 Influenza, IIV3 (Age 6-35 mos) 06/10/2011 Influenza, IIV3 (Age >=3 years) 06/07/20 13,04/27/2012,06/10/2011,2009,06/11/2009,09/14/2008,06/29/2006 Influenza, IIV4 05/31/2023,,06/13/2021,2019,06/19/2019,06/14/2018,06/15/2016 Influenza, IIV4 (=>6mos) MDV 05/21/2014 Pneumococcal Conj [...] on file Legal Sex Female 6:42 AM DRUM FILLER Gender Identity Not on file Sexual Orientation Not on file Obstetrics History Last Filed Vital Signs Vital Sign Reading Time Taken Comments Blood Pressure 130/57 02/19/2025 3:30 PM CDT Pulse 90 02/19/2025 3:30 PM CDT Temperature 36.8 C (98.3 F) 02/19/2025 1:24 PM CDT Respiratory Rate 18 02/19/2025 3:01 PM CDT Oxygen Saturation 95% 02/19/2025 3: 01 PM CDT Inhaled Oxygen Concentration - - Weight 143.5 kg (316 lb 6.4 oz) 01/18/2025 2:50 PM CDT Height 162.6 cm (5' 4) 11/23/2023 11:1 6 AM CDT Body Mass Index 54.31 11/23/2023 11:16 AM CDT Plan of Treatment Upcoming Encounters Date Type Department Care Team (Late st Contact Info) Description 02/26/2025 1:20 PM CDT Office Visit [facility] [address] [address] Jonathan Nagy MBBS [address] [place] [address] 03/01/2025 3:05 PM CDT Office Visit [facility] [address] [place] [address] Poly Wilhelm MD [address] [place] [id number] 04/23/2025 11:20 AM CDT Office Visit [facility] [address] [place] [address] Poly Wilhelm MD [address] [place] [address] Scheduled Procedures Name Priority Associated Diagnoses Date/Ti me SURGICAL PROCEDURE (TYPE PROCEDURE DESCRIPTION BELOW) Tier 2 Endometrial hyperplasia, unspecified Health Maintenance Due Date Last Done Comments Hepatitis B series for 19+ ( 2 of 3 - 19+ 3-dose series) 04/05/2013 03/08/2013 Mammogram for age 45-75 01/14/2018 01/14/2017, 01/06 Pap test for age 21-65 09/21/2020 8, 02/02/2017, 02/02/2017, Additional history exists RSV vaccine for adults or (1 - Risk 60-74 years 1-dose series) 2021 BMI (ht and wt on same day) for age 18+ 10/12/2024 10/12/2023, 10/22/2020, 03/06/2019, Additional history exists Influenza Vaccine (#1) 2025 4, 05/31/2023, 06/12/2022, Additional history exists Depression screening for age 12+ 07/05/2025 07/05/2024, 07/03/2024, 06/30/2024, Additional history exists Colonoscopy through age 75 03/25/2029 03/25/2022, Lipids for age 45-75 09/26/2029 09/26/2024, 10/12/2023, 06/03/2022, Additional history exists Tetanus booster 10/30/2030 10/30/2020, 12/0 08/2009, 07/16/2010 HIV for age 15-65 Completed 01/07/2010 Hepatitis C screening for ag e 18-79 Completed 10/03/2019 Zoster (shingles) series for age 50+ Completed 10/30/2020, 04/26/2020 Pneumococcal series for age 50+ Completed 3, 08/31/2009 COVID-19 vaccine series Completed 06/30/20 24, 11/25/2023, 05/31/2023, Additional history exists Medical Devices Implanted Type Area Customer Operations Associate Device Identifier Shelf Expiration Date Model / Serial / Lot Sys Intrauterine Mirena - [id number] Implanted:Qty: 1 on 05/14/2017 by Silvia Brown MD at [facility] N/A: Uterus CombiMatrix 12/13/2019 [id number] / / [id number] Procedures Procedure Name Priority Date/Time Associated Diagnosis Comments HEMOGLOBIN A1C MONITORING (POCT) Routine 01/18/2025 3:39 PM CDT Controlled type 2 diabetes mellitus with complication, with long-term current use of insulin (HC) CBC W PLT NO DIFF Routine 01/18/2025 3:3 7 PM CDT Iron deficiency anemia secondary to inadequate dietary iron intake FERRITIN Routine 01/18/2025 3:35 PM CDT Iron deficiency anemia secondary to inadequate dietary iron intake IRON PLUS IRON BINDING CAP Routine 01/18/2025 3:35 PM CDT Iron deficiency anemia secondary to inadequate dietary iron intake LIPID PANEL Routine 09/26/2024 4:51 PM DRUM FILLER Uncontrolled type 2 diabetes mellitus with hyperglycemia (HC) COLONOSCOPY 03/25/2022 8:27 AM CDT ANTI HCV Add On 10/03/2019 4:03 PM DRUM FILLER Need for hepatitis C screening test INDUSTRIAL TRAINER THIN PREP PAP DIAGNOSTIC IMAGED Today 09/21/2017 9:55 AM DRUM FILLER XR MAMMO UNI DIAGNOSTIC RIGHT Routine 01/14/2017 2:47 PM CDT Breast microcalcifications ANTI HIV 1/2 Early AM 01/07/2010 10:15 AM CDT from Last 3 Months or Most Recently Relevant to Health Maintenance Results * (ABNORMAL) POCT Hemoglobin A1C Monitoring (01/18/2025 3:39 PM CDT) Pathologist [facility] POC HEMOGLOBIN A1C 6.2(H) <6.0 % OF TOTAL HGB [facility] Comment: Any point of care results exhibiting inconsistency with the patient's clinical status should be repeated using a different testing method. Blood BLOOD SPECIMEN / Unknown 01/18/2025 3:39 PM CDT 01/18/2025 3:39 PM CDT Poly Wilhelm MD CHEMISTRY Final Re sult [facility] [address] [place] [address], [facility] [address] [place] [address] * (ABNORMAL) CBC W PLT NO DIFF (01/18/2025 3:37 PM CDT) Pathologist [facility] WHITE BLOOD CELL COUNT 13.1(H) 3.8 - 10.8 Thousand/u L [facility] RED BLOOD CELL COUNT 4.36 3.80 - 5.10 Million/uL [facility] HEMOGLOBIN 11.4(L) 11.7 - 15.5 g/dL [facility] HEMATOCRIT 37.1 35.0 - 45.0 % [facility] MCV 85.1 80.0 - 100.[address] [facility] MCH 26.1(L) 27.0 - 33.[address] [facility] MCHC 30.7(L) 32.0 - 36.0 g/dL [facility] Comment: For adults, a slight decrease in the calculated MCHC value (in the range of 30 to 32 g/dL) is most likely not clinically significant; however, it should be interpreted with caution in correlation with other red cell parameters and the patient's clinical condition. RDW 14.5 11.0 - 15.0 % [facility] PLATELET COUNT 521(H) 140 - 400 Thousand/u L [facility] MPV 9.4 7.5 - 12.[address] [facility] Blood BLOOD SPECIMEN / Unknown 01/18/2025 3:37 PM CDT 01/18/2025 3:38 PM CDT Narrative [facility] - 01/18/2025 3:57 PM CDT SPLIT 01/18/2025 FROM [id number] Poly Wilhelm MD HEMATOLOGY Final Re sult [facility] [address] [place] [address], [facility] [address] [place] [address] * (ABNORMAL) IRON PLUS IRON BINDING CAP (01/18/2025 3:35 PM CDT) IRON, TOTAL 41(L) 45 - 160 mcg/dL [facility] IRON BINDING CAPACITY 462(H) 250 - 450 mcg/dL (calc) [facility] % SATURATION 9(L) 16 - 45 % (calc) [facility] Blood BLOOD SPECIMEN / Unknown 01/18/2025 3:35 PM CDT 01/18/2025 3:36 PM CDT Narrative [facility] - 01/19/2025 5:01 AM CDT MULTIPLE TESTING PRIORITIES; ROUTINE TESTING TO FOLLOW. Poly Wilhelm MD CHEMISTRY Final Re sult Performing Organization Address [facility]/ZIP Co de Phone Number [facility] [address] [place] [address], [facility] [address] [place] [address] * (ABNORMAL) FERRITIN (01/18/2025 3:35 PM CDT) FERRITIN 13(L) 16 - 288 ng/mL [facility] Blood BLOOD SPECIMEN / Unknown 01/18/2025 3:35 PM CDT 01/18/2025 3:36 PM CDT Narrative [facility] - 01/19/2025 4:22 AM CDT MULTIPLE TESTING PRIORITIES; ROUTINE TESTING TO FOLLOW. Poly Wilhelm MD CHEMISTRY Final Re sult Performing Organization Address [facility]/ZIP Co de Phone Number [facility] [address] [address], [facility] [address] [place] [address] * (ABNORMAL) LIPID PANEL (09/26/2024 4:51 PM DRUM FILLER) CHOLESTEROL, TOTAL 105 <200 mg/dL [facility] HDL CHOLESTEROL 40(L) > OR = 50 mg/dL [facility] TRIGLYCERIDES 146 <150 mg/dL [facility] LDL-CHOLESTEROL 42 mg/dL (calc) [facility] Comment: Reference range: <100 Desirable range <100 mg/dL for primary prevention; <70 mg/dL for patients with CHD or diabetic patients with > or = 2 CHD risk factors. LDL-C is now calculated using the Chidi-Wheeler calculation, which is a validated novel method providing better accuracy than the Friedewald equation in the estimation of LDL-C. Chidi SS et al. RAHEEM. 2013;310(19): 6757-3041 (http://education.Moontoast.12Return/faq/YGW563) CHOL/HDLC RATIO 2.6 <5.0 (calc) [facility] NON HDL CHOLESTEROL 65 <130 mg/dL (calc) [facility] Comment: For patients with diabetes plus 1 major ASCVD risk factor, treating to a non-HDL-C goal of <100 mg/dL (LDL-C of <70 mg/dL) is considered a therapeutic option. Blood BLOOD SPECIMEN / Unknown 09/26/2024 4:51 PM DRUM FILLER 09/26/2024 4:52 PM DRUM FILLER Narrative [facility] - 09/27/2024 5:09 AM DRUM FILLER MULTIPLE TESTING PRIORITIES; ROUTINE TESTING TO FOLLOW. Poly Wilhelm MD CHEMISTRY Final Re sult [facility] [address] [place] [address], [facility] [address] [address] * COLONOSCOPY (03/25/2022 8:27 AM CDT) 03/25/2022 8:27 AM CDT Narrative Transcriptions Janice Gerber MD - 03/25/2022 8:54 AM CDT Patient Name: Stacey Palumbo Procedure Date: 03/25/2022 Gender: Female Date of : 1960 Admit Type: Ambulatory Procedure: Colonoscopy Proceduralist: Janice Gerber MD Referring MD: Poly Flores Indications/Pre-Op Diagnosis: Screening for malignant neoplasm in [facility], High risk colon cancer surveillance:Personal history of [...] provided and informed consent obtained. The endoscope [id number] was introduced through the anus and advanced to the cecum, identified by appendiceal orifice andileocecal valve. The colonoscopy was performed without difficulty. The patient tolerated the procedure well. The quality of the bowel preparationwas evaluated using the BBPS ([place] Bowel Preparation Scale) with scores of: Right [...] Result * ANTI HCV (10/03/2019 4:03 PM DRUM FILLER) [facility] HEPATITIS C ANTIBODY Non-React haley Non-React haley 10/03/2019 9:15 PM DRUM FILLER [facility] LABORAT[facility] Comment:Antibodies to HCV no t detected; does not exclude the possibility of exposure to HCV. Blood BLOOD SPECIMEN / Unknown Venipuncture / Unknown 10/03/2019 4:03 PM DRUM FILLER 10/03/2019 4:05 PM DRUM FILLER Blake Carpio MD SEND OUTS Final Re sult [facility] [address] [place] [address], [place] * (ABNORMAL) INDUSTRIAL TRAINER THIN PREP PAP DIAGNOSTIC IMAGED (09/21/2017 9:55 AM DRUM FILLER) Case Report Gynecologic Cytology Report Case: [id number] Authorizing Provider: Danitza Salinas, Collected: 09/21/2017 0955 Ordering Location: [facility] Received: 09/21/2017 1037 First Screen: Kailash Mtz Rescreen: Chel Childress Specimen: INDUSTRIAL TRAINER ThinPrep Vial Diagnostic, Cervical 09/30/2017 8:28 AM DRUM FILLER [facility] LABORATORY-C ENTRAL LABORATORY INTERPRETATION/ RESULT UNSATISFACTORY FOR EVALUATION (UNS)(A) (none) 09/30/2017 8:28 AM DRUM FILLER [facility] ENTRAL LABORATORY at 0828 DRUM FILLER SPECIMEN ADEQUACY Specimen processed and examined, but unsatisfactory for evaluation of epithelial abnormality because of: Scant cellularity Foreign material/lubrican t 09/30/2017 8:28 AM DRUM FILLER [facility] ENTRAL LABORATORY HPV REQUEST HPV if ASCUS 09/30/2017 8:28 AM DRUM FILLER [facility] ENTRAL LABORATORY Date of LMP unknown 09/30/2017 8:28 AM DRUM FILLER [facility] EN[facility]AL LABOR[facility] Last Pap Date 02/02/17 09/30/2017 8:28 AM DRUM FILLER [facility] ENTRAL LABORATORY Last Pap Result ASCUS 8 8:28 AM DRUM FILLER [facility] EN[facility]AL LAB[facility]ORY Abnormal Pap or [place] Bx in last 5 years Yes 09/30/2017 8:28 AM DRUM FILLER [facility] EN[facility]AL LABORATORY Menstrual Status Postmenopausal 09/30/2017 8:28 AM DRUM FILLER [facility] ENTRAL LABORATORY [place] Bx Done Today No 09/30/2017 8:28 AM DRUM FILLER [facility] ENTRAL LABORATORY Additional Information None Given 09/30/2017 8:28 AM DRUM FILLER [facility] ENTRAL LAB[facility] Automated Review Successful 09/30/2017 8:28 AM DRUM FILLER [facility] Comment:Specimen processed s uccessfully by automated surveillance supervisor device, ThinPrep Imaging System, [employer] Note The pap test is a [...] at [facility] (Central Lab, [facility], [facility], [facility], [facility], [facility][Note 3], [facility]) 09/30/2017 8:28 AM DRUM FILLER [facility] LABORATORY-C ENTRAL LABORATORY Other (Cervical) Non-Blood / Unknown 09/21/2017 9:55 AM DRUM FILLER 09/21/2017 10:37 AM DRUM FILLER us Danitza Suero MD PATHOLOGY/CYTOLOGY F inal Result [facility] LABORATORY-CENTRAL LABORATORY [address] [place] [address], [place] * XR MAMMO UNI DIAGNOSTIC RIGHT [...] The patient prefers to go to the [facility] for further consultation regarding stereotactic biopsy. Dr. Carpio office is notified for a referral to the [facility]. IMPRESSION: Grouped calcifications in the central right breast which are mildly suspicious. ACR BI-RADS Category 4: Suspicious. The findings are reviewed with the patient in person. She has elected to go to [facility] for stereotactic biopsy. Procedure Note Jacky [...] The patient prefers to go to the [facility] for furtherconsultation regarding stereotactic biopsy. Dr. Carpio office isnotified for a referral to the [facility]. IMPRESSION: Grouped calcifications in the central right breast which are mildlysuspicious. ACR BI-RADS Category 4: Suspicious. The findings are reviewed with the patient in person. She has elected togo to [facility] for stereotactic biopsy. us Blake Carpio MD MAMMO Final Re sult * ANTI HIV 1/2 (01/07/2010 10:15 AM CDT) ANTI HIV 1/2 Non-reacti ve [facility] Blood specimen (specimen) BLOOD SPECIMEN / Unknown 01/07/2010 10:15 AM CDT 01/06/2010 10:01 PM CDT us Neeraj Dougherty MD SEND OUTS Final Result [facility] INTERNAL ZIP [address] [place] [id number] from Last 3 Months or Most Recently Relevant to Health Maintenance Insurance MEDICAID MEDICA CHOICE CARE MEDICAID Advance Directives Documents on File Type Date Recorded Patient Textiles Printer Marge fernandez BERNABE 06/23/2016 12:30 PM Healthcare Directive 01/14/2010 RESUSCI [...] 6:05 AM 05/14/2017 8:31 AM Care Teams Switch Tender Relationship Specialty Start Date End Date Poly Wilhelm MD [address] [place] [address] PCP - General Family Practice 06/30/22
--- OUTSIDE RECORDS SUMMARY | 2025-02-21 14:49 | XMS_ITS | CCD ---
Author Organization Unknown Care Team Providers Care Quality Control Microbiology Supervisor Name Role Phone Address Change Clerk, [place] Primary Care Provider Unava ilable Unavailable Chronic Care Management Unavaila ble Summary Purpose DataExchange Insurance Providers Payer name Policy type / Coverage type Covered alliance party ID Effective Begin Date Effective End Date [facility] Commercial Insurance [id number] Unkn own Family History Family History data not found Medication Administered No Medication Administered data Reason For Visit No Reason For Visit data
--- OUTSIDE RECORDS SUMMARY | 2025-02-21 14:49 | XMS_ITS | CCD ---
Author Organization Unknown Care Team Providers Care Telephone Lineworker Name Role Phone Nurse Assessor, [place] Primary Care Provider Unava ilable Unavailable Chronic Care Management Unavaila ble Summary Purpose DataExchange Insurance Providers Payer name Policy type / Coverage type Covered alliance party ID Effective Begin Date Effective End Date [facility] Commercial Insurance [id number] Unkn own Family History Family History data not found Medication Administered No Medication Administered data Reason For Visit No Reason For Visit data
--- NOTE | 2025-02-21 14:51 | ED.GENADULT ---
HPI - General Adult General Chief complaint: Extremity Pain/Injury, Lower <Alana Ryder MD - Last Filed: 02/21/25 15:55> Stated complaint: R leg pain <Alana Ryder MD - Last Filed: 02/21/25 15:55> Time Seen by Provider: 02/21/25 14:07 <Alana Ryder MD - Last Filed: 02/21/25 15:55> Source: patient <Alana Ryder MD - Last Filed: 02/21/25 15:55> Mode of arrival: ambulatory <Alana Ryder MD - Last Filed: 02/21/25 15:55> Limitations: no limitations <Alana Ryder MD - Last Filed: 02/21/25 15:55> History of Present Illness HPI narrative: 64-year-old female presenting today with right thigh pain for the last 3 days. Pain is located anterolaterally. Nothing seems to make it better or worse. She denies fevers or chills. She denies any trauma to the area. She denies pain with movement at the hip or knee. She states that it is swollen. She denies any erythema to the area. She denies pain in the posterior thigh. She states that the pain is becoming unbearable. Patient gets around on a scooter. <Alana Ryder MD - Last Filed: 02/21/25 15:55> Related Data Home medications: Home Medications ?Medication ?Instructions ?Recorded ?Confirmed aspirin 81 mg chewable tablet 81 mg PO DAILY 04/01/24 02/21/25 cholecalciferol (vitamin D3) 50 50 mcg PO DAILY 04/01/24 02/21/25 mcg (2,000 unit) capsule (Vitamin D3) cyanocobalamin (vitamin B-12) 1,000 mcg PO DAILY 04/01/24 02/21/25 1,000 mcg tablet (Vitamin B-12) duloxetine 60 mg capsule,delayed 60 mg PO DAILY 04/01/24 02/21/25 release fluticasone furoate 200 1 inh inhalation DAILY 04/01/24 02/21/25 mcg-vilanterol 25 mcg/dose inhalation powder furosemide 20 mg tablet 20 mg PO QAM 04/01/24 02/21/25 gabapentin 300 mg capsule 300 mg PO DAILY 04/01/24 02/21/25 hydrocodone 7.5 mg-acetaminophen 1 tab PO Q6H 04/01/24 02/21/25 325 mg tablet hydroxyzine HCl 25 mg tablet 25 mg PO TID PRN 04/01/24 02/21/25 insulin glargine 100 unit/mL (3 20 unit subcut QPM 04/01/24 02/21/25 mL) subcutaneous pen (Lantus Solostar U-100 Insulin) levothyroxine 150 mcg capsule 150 mcg PO DAILY 04/01/24 02/21/25 magnesium hydroxide 400 mg/5 mL 15 ml PO DAILY PRN 04/01/24 02/21/25 oral suspension (Milk of Magnesia) megestrol 40 mg tablet 40 mg PO DAILY 04/01/24 02/21/25 metformin 1,000 mg tablet 1,000 mg PO BID 04/01/24 02/21/25 rosuvastatin 20 mg tablet 20 mg PO DAILY 04/01/24 02/21/25 zolpidem 10 mg tablet 10 mg PO QHS PRN 04/01/24 02/21/25 <Alana Ryder MD - Last Filed: 02/21/25 15:55> Allergies/adverse reactions: Allergies Allergy/AdvReac Type Severity Reaction Status Date / Time droperidol Allergy Unknown Verified 02/21/25 16:14 fluoxetine Allergy Unknown Verified 02/21/25 16:14 ibuprofen Allergy Unknown Verified 02/21/25 16:14 pollen extracts Allergy Unknown Verified 02/21/25 16:14 weed pollen Allergy Unknown Verified 02/21/25 16:14 <Alana Ryder MD - Last Filed: 02/21/25 15:55> Review of Systems Status of ROS: Reports: 10 or more systems reviewed and unremarkable except as noted in History and below <Alana Ryder MD - Last Filed: 02/21/25 15:55> [facility] Social History: Social History Smoking Status: Current every day smoker What tobacco products do you use: cigarettes Smoking packs per day: 0.5 Smoking cigarettes per day: 10.0 How often do you have a drink containing alcohol: never AUDIT-C Alcohol total score: 0 Non-prescribed substance use: denies use <Alana Ryder MD - Last Filed: 02/21/25 15:55> Exam Narrative: Exam Narrative: Obese, well-developed patient in no acute distress. Alert and oriented. Answers questions appropriately. Mood and affect are appropriate. Thoughts are goal oriented and rational. No tangential or magical thinking noted. Patient speaks in full sentences without needing to catch her breath. HEENT: Normocephalic atraumatic. Pupils are equally round reactive to light. Extraocular muscles are intact. Conjunctivae are moist without any icterus noted. Moist mucous membranes. Cardiovascular: Heart is regular rate and rhythm S1 and S2 are present without any murmurs. Lungs: Clear to auscultation bilaterally no wheezes rhonchi or rales are appreciated. Extremities: Bilateral lower extremities are without pitting edema. The right thigh is 2 in larger than the left. She has tenderness over the lateral upper thigh. No tenderness over the greater trochanter but difficult to ascertain with specificity given her body habitus. She has no pain with movement at the hip joint or the knee joint. There is no erythema noted. Skin: Well perfused, dry. <Alana Ryder MD - Last Filed: 02/21/25 15:55> Const: Vital Signs, click to edit/add: Vital Signs - 24 hr 02/21/25 14:23 02/21/25 16:52 Temperature 96.2 F L Pulse Rate [Pulse Oximeter] 110 H 85 Respiratory Rate 22 21 Blood Pressure [Ri ght Forearm] 128/63 138/62 Pulse Oximetry 97 98 Oxygen Delivery Me thod Room Air Room Air <Alana Ryder MD - Last Filed: 02/21/25 15:55> Vital Signs, click to edit/add: Vital Signs - 24 hr 02/21/25 14:23 02/21/25 16:52 Temperature 96.2 F L Pulse Rate [Pulse Oximeter] 110 H 85 Respiratory Rate 22 21 Blood Pressure [Ri ght Forearm] 128/63 138/62 Pulse Oximetry 97 98 Oxygen Delivery Me thod Room Air Room Air <Neyda Villavicencio MD - Last Filed: 02/21/25 17:08> Course Course ED Course: Her blood work showed some abnormalities including elevated white cell count 12.33, anemia with hemoglobin of 10.9 and an elevated platelet count of 495,000. Her lactate was also elevated at 2.8. Ultrasound was negative for DVT. Normal D-dimer. Given her elevated lactate and white cell count and swelling as well as pain of that thigh am concerned about the possibility of a in intramuscular abscess or other infection. Therefore we did proceed with a CT scan of the thigh. <Alana Ryder MD - Last Filed: 02/21/25 15:55> Vital Signs Vital signs: Initial Vital Signs Temperature 96.2 F L 02/21/25 14:23 Temperature Source Temporal Artery Scan 02/21/25 14:23 Pulse Rate 110 H 02/21/25 14:23 Respiratory Rate 22 02/21/25 14:23 Blood Pressure 128/63 02/21/25 14:23 Blood Pressure Mean 84 02/21/25 14:23 Pulse Oximetry 97 02/21/25 14:23 Oxygen Delivery Method Room Air 02/21/25 14:23 Vital Signs Temperature 96.2 F L 02/21/25 14:23 Pulse Rate 110 H 02/21/25 14:23 Respiratory Rate 22 02/21/25 14:23 Blood Pressure 128/63 02/21/25 14:23 Pulse Oximetry 97 02/21/25 14:23 Oxygen Delivery Method Room Air 02/21/25 14:23 Temperature 96.2 F L 02/21/25 14:23 Pulse Rate 85 02/21/25 16:52 Respiratory Rate 21 02/21/25 16:52 Blood Pressure 138/62 02/21/25 16:52 Pulse Oximetry 98 02/21/25 16:52 Oxygen Delivery Method Room Air 02/21/25 16:52 <Alana Ryder MD - Last Filed: 02/21/25 15:55> Initial Vital Signs Temperature 96.2 F L 02/21/25 14:23 Temperature Source Temporal Artery Scan 02/21/25 14:23 Pulse Rate 110 H 02/21/25 14:23 Respiratory Rate 22 02/21/25 14:23 Blood Pressure 128/63 02/21/25 14:23 Blood Pressure Mean 84 02/21/25 14:23 Pulse Oximetry 97 02/21/25 14:23 Oxygen Delivery Method Room Air 02/21/25 14:23 Vital Signs Temperature 96.2 F L 02/21/25 14:23 Pulse Rate 110 H 02/21/25 14:23 Respiratory Rate 22 02/21/25 14:23 Blood Pressure 128/63 02/21/25 14:23 Pulse Oximetry 97 02/21/25 14:23 Oxygen Delivery Method Room Air 02/21/25 14:23 Temperature 96.2 F L 02/21/25 14:23 Pulse Rate 85 02/21/25 16:52 Respiratory Rate 21 02/21/25 16:52 Blood Pressure 138/62 02/21/25 16:52 Pulse Oximetry 98 02/21/25 16:52 Oxygen Delivery Method Room Air 02/21/25 16:52 <Neyda Villavicencio MD - Last Filed: 02/21/25 17:08> Medications Administered Medications: Discontinued Medications Generic Name Dose Route Start Last Admin Trade Name Freq PRN Reason Stop Dose Admin Sodium Chloride 1,000 mls @ 1,000 mls/hr 02/21/25 15:30 02/21/25 16:59 0.9 % Sodium Chloride 1000 Ml IV 02/21/25 16:29 Infused .Q1H ANNABELLA Infusion <Alana Ryder MD - Last Filed: 02/21/25 15:55> Discontinued Medications Generic Name Dose Route Start Last Admin Trade Name Freq PRN Reason Stop Dose Admin Sodium Chloride 1,000 mls @ 1,000 mls/hr 02/21/25 15:30 02/21/25 16:59 0.9 % Sodium Chloride 1000 Ml IV 02/21/25 16:29 Infused .Q1H ANNABELLA Infusion <Neyda Villavicencio MD - Last Filed: 02/21/25 17:08> Medical Decision Making MDM Narrative Medical decision making narrative: This case was signed out by my colleague for review of CT, potential Toradol administration for pain and arrangement for close follow-up. CT negative for any abnormality. Ultrasound from earlier today shows no DVT. I do discuss with patient. She does have some mild tenderness along the anterior lateral aspect of her leg without any erythema or warmth to the touch. Pain has been ongoing for 3-4 days. Patient is informed of her CT results. Did offer Toradol but she states that she does not like to take that medication. States that she has an different pain medicine and I do note that she is on hydrocodone. Have offered her a dose here and she agrees to that. She is not driving today. Assessment: 1. Leg pain 2. Leg swelling Plan: At this time increase [place] 5/325 from 1 tablet every 6 hours to 1 tablet every 4 hours. We are making appointments so patient has close follow-up in the next 48 hours. Recommend patient returns for fever, redness, increasing discomfort and as needed. She is in agreement. <Neyda Villavicencio MD - Last Filed: 02/21/25 17:08> Medical Records Medical records reviewed: Yes I reviewed the patient's medical records <Neyda Villavicencio MD - Last Filed: 02/21/25 17:08> Lab Data Lab results reviewed: Yes I reviewed the patient's lab results <Neyda Villavicencio MD - Last Filed: 02/21/25 17:08> Labs: Lab Results 02/21/25 Range/Units 14:47 WBC 12.33 H (4.50-11.00) K/uL RBC 4.10 (4.00-5.20) m/uL Hgb 10.9 L (12.0-16.0) gm/dL Hct 35.2 (33.0-51.0) % MCV 86 (80-100) fL MCH 27 (26-34) pg MCHC 31 L (32-36) gm/dL RDW Coeff of Dimitry 15.0 (11.5-15.5) % Plt Count 495 H (140-440) K/uL Neut % (Auto) 61.2 (42.0-72.0) % Lymph % (Auto) 26.8 (20-44) % Mckenzie % (Auto) 7.1 (0.0-11.0) % Eos % (Auto) 4.5 (0.0-7.0) % Baso % (Auto) 0.2 (0.0-3.0) % Neut # (Auto) 7.50 H (1.7-7.0) K/uL Lymph # (Auto) 3.30 H (0.90-2.90) K/uL Mckenzie # (Auto) 0.90 (0.00-0.90) K/UL Eos # (Auto) 0.60 H (0.00-0.50) K/uL Baso # (Auto) 0.00 (0.00-0.30) K/uL Abs Immat Gran (auto) 0.00 (0.00-0.30) K/uL Imm/Tot Granulo (auto) 0.2 % D-Dimer Quant (PE/DVT) < 0.27 (0.00-0.50) ug/ml Sodium 137 (135-149) mmol/L Potassium 4.4 (3.6-5.1) mmol/L Chloride 102 (96-114) mmol/L Carbon Dioxide 27 (20-32) mmol/L Anion Gap 8 (7-15) mEq/L BUN 12 (7-30) mg/dL Creatinine 1.0 (0.5-1.5) mg/dL Estimated Creat Clear 47.63 Estimated GFR 63 ml/min Glucose 110 (60-115) mg/dL Lactate 2.8 H (0.5-1.9) mmol/L Calcium 9.4 (8.4-10.6) mg/dL C-Reactive Protein 0.7 (0.5-1.0) mg/dL Procalcitonin 0.06 (<0.50) ng/mL <Alana Ryder MD - Last Filed: 02/21/25 15:55> Lab Results 02/21/25 Range/Units 14:47 WBC 12.33 H (4.50-11.00) K/uL RBC 4.10 (4.00-5.20) m/uL Hgb 10.9 L (12.0-16.0) gm/dL Hct 35.2 (33.0-51.0) % MCV 86 (80-100) fL MCH 27 (26-34) pg MCHC 31 L (32-36) gm/dL RDW Coeff of Dimitry 15.0 (11.5-15.5) % Plt Count 495 H (140-440) K/uL Neut % (Auto) 61.2 (42.0-72.0) % Lymph % (Auto) 26.8 (20-44) % Mckenzie % (Auto) 7.1 (0.0-11.0) % Eos % (Auto) 4.5 (0.0-7.0) % Baso % (Auto) 0.2 (0.0-3.0) % Neut # (Auto) 7.50 H (1.7-7.0) K/uL Lymph # (Auto) 3.30 H (0.90-2.90) K/uL Mckenzie # (Auto) 0.90 (0.00-0.90) K/UL Eos # (Auto) 0.60 H (0.00-0.50) K/uL Baso # (Auto) 0.00 (0.00-0.30) K/uL Abs Immat Gran (auto) 0.00 (0.00-0.30) K/uL Imm/Tot Granulo (auto) 0.2 % D-Dimer Quant (PE/DVT) < 0.27 (0.00-0.50) ug/ml Sodium 137 (135-149) mmol/L Potassium 4.4 (3.6-5.1) mmol/L Chloride 102 (96-114) mmol/L Carbon Dioxide 27 (20-32) mmol/L Anion Gap 8 (7-15) mEq/L BUN 12 (7-30) mg/dL Creatinine 1.0 (0.5-1.5) mg/dL Estimated Creat Clear 47.63 Estimated GFR 63 ml/min Glucose 110 (60-115) mg/dL Lactate 2.8 H (0.5-1.9) mmol/L Calcium 9.4 (8.4-10.6) mg/dL C-Reactive Protein 0.7 (0.5-1.0) mg/dL Procalcitonin 0.06 (<0.50) ng/mL <Neyda Villavicencio MD - Last Filed: 02/21/25 17:08> Imaging Data CT right thigh: Attestation: I have reviewed the pertinent imaging results. <Neyda Villavicencio MD - Last Filed: 02/21/25 17:08> My impression: I do not note any hematoma or abscess <Neyda Villavicencio MD - Last Filed: 02/21/25 17:08> Radiologist's impression: No evident acute displaced fracture. Mild degenerative change of the hip and pubic symphysis. Advanced degenerative change of the knee. There are multiple well corticated ossified joint bodies in the knee. There are posterior and inferior patellar enthesophytes. 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 Grossly normal muscular bulk within the thigh. No abscess or abnormal fluid collection in the thigh. Partially imaged IUD within the uterus. IMPRESSION: 1. No acute findings. 2. Advanced degenerative change of the knee. <Neyda Villavicencio MD - Last Filed: 02/21/25 17:08> Venous US: Attestation: I have reviewed the pertinent imaging results. <Neyda Villavicencio MD - Last Filed: 02/21/25 17:08> Radiologist's impression: Sonographic imaging demonstrates the right common femoral, deep femoral, superficial femoral, popliteal, posterior tibial and greater saphenous and the contralateral left common femoral veins to be fully compressible with normal color Doppler blood flow. IMPRESSION: Normal right lower extremity venous ultrasound, no sign of deep venous thrombosis. <Neyda Villavicencio MD - Last Filed: 02/21/25 17:08> Discharge Plan Discharge Clinical Impression: Pain in right thigh, Leg swelling <Alana Ryder MD - Last Filed: 02/21/25 15:55> Patient Disposition: Home, Self-Care <Alana Ryder MD - Last Filed: 02/21/25 15:55> Condition: Stable <Alana Ryder MD - Last Filed: 02/21/25 15:55> Additional Instructions: Increase [place] to 1 tablet every 4 hours as needed. Follow-up with your [facility] physician in the next 48 hours: An appointment has been made for you at Return to the emergency room for fever, spreading pain, increasing redness and worsening symptoms. <Alana Ryder MD - Last Filed: 02/21/25 15:55> Prescriptions: No Action hydrocodone-acetaminophen 7.5-325 mg tablet 1 tab PO Q6H insulin glargine [Lantus Solostar U-100 Insulin] 100 unit/mL (3 mL) insulin pen 20 unit subcut QPM levothyroxine 150 mcg capsule 150 mcg PO DAILY megestrol 40 mg tablet 40 mg PO DAILY metformin 1,000 mg tablet 1,000 mg PO BID rosuvastatin 20 mg tablet 20 mg PO DAILY zolpidem 10 mg tablet 10 mg PO QHS PRN cyanocobalamin (vitamin B-12) [Vitamin B-12] 1,000 mcg tablet 1,000 mcg PO DAILY cholecalciferol (vitamin D3) [Vitamin D3] 50 mcg (2,000 unit) capsule 50 mcg PO DAILY aspirin 81 mg tablet,chewable 81 mg PO DAILY duloxetine 60 mg capsule,delayed release(DR/EC) 60 mg PO DAILY fluticasone furoate-vilanterol 200-25 mcg/dose blister with device 1 inh inhalation DAILY furosemide 20 mg tablet 20 mg PO QAM gabapentin 300 mg capsule 300 mg PO DAILY hydroxyzine HCl 25 mg tablet 25 mg PO TID PRN magnesium hydroxide [Milk of Magnesia] 400 mg/5 mL suspension 15 ml PO DAILY PRN <Alana Ryder MD - Last Filed: 02/21/25 15:55> Follow Up/Referrals: Provider,Not a Local [Primary Care Provider, Family Practice] <Alana Ryder MD - Last Filed: 02/21/25 15:55> Stand Alone Forms: [facility] Info Instructions <Alana Ryder MD - Last Filed: 02/21/25 15:55>
[2025-02-21 14:52] LABS: Lactate* 2.8 mmol/L (0.5-1.9)
[2025-02-21 15:02] LABS: Hematocrit 35.2 % (33.0-51.0); Hemoglobin* 10.9 gm/dL (12.0-16.0); Immature Granulocytes Pct Auto 0.2 %; Mean Corpuscular HGB Conc 31 gm/dL (32-36); Mean Corpuscular Hemoglobin 27 pg (26-34); Mean Corpuscular Volume 86 fL (80-100); RDW Coefficient of Variation % 15.0 % (11.5-15.5); Red Blood Count 4.10 m/uL (4.00-5.20); White Blood Count* 12.33 K/uL (4.50-11.00)
[2025-02-21 15:04] LABS: Immature Granulocytes Abs Auto 0.00 K/uL (0.00-0.30); Lymphocytes Absolute Auto 3.30 K/uL (0.90-2.90); Slide Review Reflex No
[2025-02-21 15:12] LABS: Chloride* 102 mmol/L (96-114); Potassium* 4.4 mmol/L (3.6-5.1); Sodium* 137 mmol/L (135-149)
[2025-02-21 15:16] LABS: Anion Gap 8 mEq/L (7-15); Blood Urea Nitrogen* 12 mg/dL (7-30); Calcium* 9.4 mg/dL (8.4-10.6); Carbon Dioxide* 27 mmol/L (20-32); Creatinine* 1.0 mg/dL (0.5-1.5); Est. Creatinine Clearance* 47.63; Estimated Glomerular Filt Rate 63 ml/min; Glucose* 110 mg/dL (60-115)
--- NOTE | 2025-02-21 15:30 | CRLHL7_ITS ---
For Patients: As a result of the Century Cures Act, medical imaging exams and procedure reports are released immediately into your electronic medical record. You may view this report before your referring provider. If you have questions, please contact your health care provider. INDICATION: Pain and swelling in the right thigh. Possible abscess, hematoma, and/or fracture. COMPARISON: Same-day right lower extremity ultrasound TECHNIQUE: CT of the right thigh with intravenous contrast (147 milliliters Isovue 370). FINDINGS: No evident acute displaced fracture. Mild degenerative change of the hip and pubic symphysis. Advanced degenerative change of the knee. There are multiple well corticated ossified joint bodies in the knee. There are posterior and inferior patellar enthesophytes. 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 Grossly normal muscular bulk within the thigh. No abscess or abnormal fluid collection in the thigh. Partially imaged IUD within the uterus. IMPRESSION: 1. No acute findings. 2. Advanced degenerative change of the knee. Please note that all CT scans at this facility use dose modulation, iterative reconstruction, and/or weight-based dosing when appropriate to reduce radiation dose to as low as reasonably achievable. Dictated by Darell Limon MD @ 02/21/2025 4:21:58 PM (Electronically Signed)
[2025-02-21 15:32] LABS: Procalcitonin* 0.06 ng/mL (<0.50)
[2025-02-21 15:44] LABS: D Dimer Quantitative* < 0.27 ug/ml (0.00-0.50)
--- OUTSIDE RECORDS SUMMARY | 2025-02-21 16:49 | XMS_ITS | CCD ---
Author Organization Unknown Care Team Providers Care Food Safety Manager Name Role Phone Associate Software Developer, [place] Primary Care Provider Unava ilable Unavailable Chronic Care Management Unavaila ble Summary Purpose DataExchange Insurance Providers Payer name Policy type / Coverage type Covered republican ID Effective Begin Date Effective End Date [facility] Commercial Insurance [id number] Unkn own Family History Family History data not found Medication Administered No Medication Administered data Reason For Visit No Reason For Visit data
--- OUTSIDE RECORDS SUMMARY | 2025-02-21 16:49 | XMS_ITS | CCD ---
Author Organization Unknown Care Team Providers Care Mud Mill Tender Name Role Phone Teaching Assistant, [place] Primary Care Provider Unava ilable Unavailable Chronic Care Management Unavaila ble Summary Purpose DataExchange Insurance Providers Payer name Policy type / Coverage type Covered republican ID Effective Begin Date Effective End Date [facility] Commercial Insurance [id number] Unkn own Family History Family History data not found Medication Administered No Medication Administered data Reason For Visit No Reason For Visit data
[2025-02-21] MEDS: HYDROCODONE-ACETAMIN 5-325 MG 1 TAB PO (17:29)
== END 2025-02-21 17:39 | disposition home or self-care (01) ==
PROVIDERS: Family Medicine; Emergency Provider Family Medicine
DX: M79.651 Pain in right thigh (principal); R22.41 Localized swelling, mass and lump, right lower limb
CPT/HCPCS: 36415; 73701; 80048; 83605; 84145; 85025; 85379; 86140; 93971; 99284; A9270; J7030; Q9967